=== PATIENT | male | born 1960 | race American Indian/Alaskan Native ===

== ENCOUNTER 2017-02-02 13:11 | Inpatient (IN) | payer BC ==
[2017-02-02 13:17] VITALS: BMI 22.1
[2017-02-02] MEDS ORDERED: Sodium Chloride 0.9% 1,000 ML IV STA (15:02)
[2017-02-02] MEDS ORDERED: Iohexol 240 (50 ml) PO STA (15:02)
[2017-02-02 15:32] LABS: BASO # 0.1 K/uL (0.0-0.2); BASO % 0.5 % (0.0-2.0); EOS % 0.3 % (0.0-4.0); LYMPH # 1.4 K/uL (1.0-4.3); LYMPH % 10.3 % (20.0-40.0); MEAN CELL VOLUME 83.6 fL (80.0-94.0); MEAN CORPUSCULAR HEMOGLOBIN 27.7 pg (27.0-31.0); MEAN CORPUSCULAR HGB CONC 33.2 g/dL (33.0-37.0); MEAN PLATELET VOLUME 7.1 fL (7.2-11.7); MONO % 7.1 % (0.0-10.0); RED CELL DISTRIBUTION WIDTH 13.6 % (11.5-14.5); WHITE BLOOD COUNT 14.1 K/uL (4.8-10.8)
--- NOTE | 2017-02-02 15:43 | RAD ---
HISTORY: abd pain COMPARISON: None available. TECHNIQUE: Chest, one view. FINDINGS: Examination limited by habitus. LUNGS: No focal consolidation. Please note that chest x-ray has limited sensitivity for the detection of pulmonary masses. PLEURA: No significant pleural effusion identified. No definite pneumothorax . CARDIOVASCULAR: The cardiomediastinal silhouette appears within normal limits of size. OSSEOUS STRUCTURES: No acute osseous abnormality identified. VISUALIZED UPPER ABDOMEN: Unremarkable. OTHER FINDINGS: None. IMPRESSION: No focal consolidation, significant pleural effusion, or definite pneumothorax identified.
[2017-02-02] MEDS ORDERED: Iohexol 240 (50 ml) ONE (15:50)
[2017-02-02] MEDS ORDERED: Sodium Chloride 0.9% 1,000 ML ONE (15:50)
[2017-02-02] MEDS ORDERED: Morphine 4 MG/ML VIAL ONE (15:50)
[2017-02-02 16:06] LABS: CHLORIDE 94 mmol/L (98-107); POTASSIUM 4.2 mmol/L (3.6-5.2); SODIUM 136 mmol/L (132-148)
[2017-02-02 16:08] LABS: GFR AFRICAN-AMERICAN > 60
[2017-02-02 16:09] LABS: ALKALINE PHOSPHATASE 112 U/L (38-126); ALT/SGPT 39 U/L (21-72); AST/SGOT 32 U/L (17-59); BLOOD UREA NITROGEN 10 mg/dL (9-20); CALCIUM 9.4 mg/dl (8.6-10.4); CARBON DIOXIDE 25 mmol/L (22-30); GLUCOSE,RANDOM 93 mg/dL (75-110); TOTAL PROTEIN 8.1 g/dL (6.3-8.3)
[2017-02-02 16:11] LABS: INR 1.3
--- NOTE | 2017-02-02 16:59 | C.PDOC ---
History Of Present Illness 56 y/o male presents to the ED with complaints of worsening pain to right groin area x11 days. Pt reports history of similar pain on the opposite side, diagnosed hernia which was repaired. Pain persistant so he went to PMD who referred patient to ED for further evaluation. Pt also reports diarrhea x2 days. Denies fever, chills, vomiting, chest pain, SOB or any other complaints. Time Seen by Provider: 02/02/17 14:14 Chief Complaint (Nursing): Abdominal Pain History Per: Patient History/Exam Limitations: no limitations Onset/Duration Of Symptoms: Days Current Symptoms Are (Timing): Worse Severity: Moderate Radiation Of Pain To:: None Quality Of Discomfort: "Pain" Associated Symptoms: Diarrhea. denies: Fever, Chills, Vomiting, Urinary Symptoms Exacerbating Factors: None Alleviating Factors: None Recent travel outside of the [place]: No Past Medical History Reviewed: Historical Data, Nursing Documentation, Vital Signs Vital Signs: Last Vital Signs Temp 100.2 F H 02/02/17 13:17 Pulse 93 H 02/02/17 15:47 Resp 18 02/02/17 15:47 BP 136/75 02/02/17 15:47 Pulse Ox 99 02/02/17 19:33 - Medical History PMH: Hypercholesterolemia Family History: States: Unknown Family Hx - Social History Hx Alcohol Use: No Hx Substance Use: No - Immunization History Hx Tetanus Toxoid Vaccination: Yes Hx Influenza Vaccination: No Hx Pneumococcal Vaccination: Yes Review Of Systems Except As Marked, All Systems Reviewed And Found Negative. Constitutional: Negative for: Fever, Chills Cardiovascular: Negative for: Chest Pain Respiratory: Negative for: Shortness of Breath Gastrointestinal: Positive for: Diarrhea, Other (right groin pain). Negative for: Vomiting Physical Exam - Physical Exam Appears: Non-toxic, No Acute Distress Skin: Warm, Dry, No Rash Head: Atraumatic, Normacephalic Neck: Normal, Normal ROM, Supple Chest: Symmetrical Cardiovascular: Rhythm Regular, No Murmur Respiratory: Normal Breath Sounds, No Rales, No Rhonchi, No Wheezing Gastrointestinal/Abdominal: Tenderness (right groin with tender swelling area, indurated, warm to palpation, not reducable), Guarding Back: Normal Inspection Male Genital: No Testicular Swelling, Inguinal Tenderness (right), Inguinal Swelling (right), Other (right inguinal area indurated, erythematous and hot to touch) Extremity: No Pedal Edema Extremity: Bilateral: Atraumatic Neurological/Psych: Oriented x3, Normal Speech, Normal Cognition ED Course And Treatment - Laboratory Results Result Diagrams: 02/02/17 15:27 02/02/17 15:50 O2 Sat by Pulse Oximetry: 99 (room air) Pulse Ox Interpretation: Normal - Other Rad CXR X-Ray: Viewed By Me, Read By Radiologist Interpretation: ccession No. : [id number]. Patient Name / ID : JIN FORTE / [id number]. Exam Date : 02/02/2017 15:23:53 ( Approved ). Study Comment : Sex / Age : M / 56Y. Creator : Katerina Allen MD. Dictator : Katerina Allen MD. Equipment Operator [employer] : Healthcare Interpreter : Katerina Allen MD. Approver2 : Report Date : 02/02/2017 15:41:21. My Comment : . HISTORY: abd pain. COMPARISON: None available. TECHNIQUE: Chest, one view. FINDINGS: Examination limited by habitus. LUNGS: No focal consolidation. Please note that chest x-ray has limited sensitivity for the detection of pulmonary masses. PLEURA: No significant pleural effusion identified. No definite pneumothorax . CARDIOVASCULAR: The cardiomediastinal silhouette appears within normal limits of size. OSSEOUS STRUCTURES: No acute osseous abnormality identified. VISUALIZED UPPER ABDOMEN: Unremarkable. OTHER FINDINGS: None. IMPRESSION: No focal consolidation, significant pleural effusion, or definite pneumothorax identified. - CT Scan/US CT abd/pel Other Rad Studies (CT/US): Read By Radiologist, Radiology Report Reviewed CT/US Interpretation: EXAM: CT Abdomen and Pelvis With Intravenous Contrast. CLINICAL HISTORY: 56 years old, male; Pain; Abdominal pain; Flank; Right lower quadrant (rlq); Additional info: Right. inguinal abd pain/erythema/fever. TECHNIQUE: Axial computed tomography images of the abdomen and pelvis with intravenous contrast. This CT. exam was performed using one or more of the following dose reduction techniques: automated. exposure control, adjustment of the mA and/or kV according to patient size, and/or use of iterative. reconstruction technique. Coronal and sagittal reformatted images were created and reviewed. CONTRAST: 100 mL of visipaque 320 administered intravenously. COMPARISON: No relevant prior studies available. FINDINGS: Lower thorax: Borderline cardiomegaly. ABDOMEN: Liver: Unremarkable. No mass. Gallbladder and bile ducts: Unremarkable. No calcified stones. No ductal dilation. Pancreas : Unremarkable. No mass. No ductal dilation. Spleen: Unremarkable. No splenomegaly. Adrenals: Unremarkable. No mass. Kidneys and ureters: Unremarkable. No solid mass. No hydronephrosis. Stomach and bowel: Unremarkable. No obstruction. No mucosal thickening. Appendix: The appendix is distended with fluid and air to 13 mm with a appendicolith near the tip. There is a appendiceal abscess which extends into the inguinal canal,Amyand's appendicitis. PELVIS: Bladder: Distended bladder. Reproductive: There is a moderate to large right hydrocele. Prominent prostate. ABDOMEN and PELVIS: Intraperitoneal space: Unremarkable. No free air. No significant fluid collection. Bones/joints: Spondylosis and facet arthrosis No acute fracture. No dislocation. Soft tissues: Minimal gynecomastia. Vasculature: Atheromatous changes of a normal caliber aorta and branch vessels. No abdominal. aortic aneurysm. Lymph nodes: Regional. IMPRESSION: Amyand's appendicitis. Pattern is still abscess extending into the right inguinal canal measuring on the order of 4.6 cm with adjacent induration of the skin and reactive lymphadenopathy. Right hydrocele. Progress Note: Plan: CT abd, CXR, EKG, UA, IV fluids, morphine, case was d/w PMD who accepted patient to med/surg for admission. - Physician Consult Information Physician Contacted: Nahun Dowd Outcome Of Conversation: admit to PMD, interventional radiology will drain an abscess tomorrow. Disposition - Disposition Disposition: HOSPITALIZED Disposition Time: 20:07 Condition: FAIR - Clinical Impression Clinical Impression: Acute appendicitis with appendiceal abscess, Inguinal hernia, incarcerated - PA / SHEET TAILER / Resident Statement MD/DO has reviewed & agrees with the documentation as recorded. - Scribe Statement The provider has reviewed the documentation as recorded by the Scribe Alberto Kate All medical record entries made by the Marion were at my direction and personally dictated by me. I have reviewed the chart and agree that the record accurately reflects my personal performance of the history, physical exam, medical decision making, and the department course for this patient. I have also personally directed, reviewed, and agree with the discharge instructions and disposition. Decision To Admit - Pt Status Changed To: Hospital Disposition Of: Inpatient - Admit Certification Admit to Inpatient:: After my assessment, the patient will require hospitalization for at least two midnights. This is because of the severity of symptoms shown, intensity of services needed, and/or the medical risk in this patient being treated as an outpatient. - InPatient: Physician Admission Certification:: Will need surgical procedure and IV antibiotics for more than 2 days - . Bed Request Type: Regular Patient Diagnosis: Acute appendicitis with appendiceal abscess, Inguinal hernia, incarcerated
[2017-02-02 17:16] LABS: RBC URINE 4 /hpf (0-3); URINE BACTERIA RARE (<OCC); URINE BILIRUBIN NEGATIVE (NEGATIVE); URINE COLOR Yellow (YELLOW); URINE GLUCOSE (UA) NORMAL (Normal); URINE KETONE TRACE mg/dL (NEGATIVE); URINE LEUKOCYTE ESTERASE NEG Leu/uL (Negative); URINE PROTEIN NEGATIVE (NEGATIVE); URINE UROBILINOGEN NORMAL mg/dL (0.2-1.0); WBC URINE < 1 /hpf (0-5)
[2017-02-02 17:17] LABS: URINE BLOOD 1+ (NEGATIVE)
[2017-02-02] MEDS ORDERED: Piperacillin/Tazobact 3.375 gm 100 ML IV STA (19:36)
[2017-02-02] MEDS ORDERED: Vancomycin 1 GM 1 GM/250 ML BAG IV SCH (19:45)
[2017-02-02] MEDS ORDERED: Piperacillin/Tazobact 3.375 gm 100 ML IVPB ONE (19:45)
[2017-02-02] MEDS ORDERED: Vancomycin 1 GM 1 GM/250 ML BAG IVPB ONE (19:46)
[2017-02-02] MEDS: Dextrose 5%/0.9% NS 1,000 ML IV SCH (22:34)
--- NOTE | 2017-02-02 22:43 | CP.PCM.CON ---
<Nathen Haines - Last Filed: 02/03/17 00:03> History of Present Illness - History of Present Illness History of Present Illness: Surgery Consult Note. Dr. Dowd CC: R Groin Pain 56yo M with PMHx of HLD here for evaluation of Right groin pain. Patient states that he felt a sharp pain in his right groin 11 days ago and also felt a small bulge in his right groin at that time. The pain subsided with some rest and then returned the following day and he noticed the bulge grew in size. Since then, he has noticed the bulge grow in size and the pain has also worsening, yesterday was the worst of his pain. He states that he did not take anything for the pain, pushing on the bulge makes the pain worse. He also states that he started running subjective fevers and chills for the past day. He also had one episode of diarrhea, no blood, no melena yesterday. He then went to his PMD earlier this afternoon who sent the patient to [facility] ED for further evaluation. Temp was 100.7F at PMD clinic. Patient does state that he has decreased appetite since yesterday. Also c/o mild headaches. Denies any N/V. No urinary changes. No CP/SOB. PMD: Dr. Romo PMHx: HLD - controlled with diet for past 3 months PSHx: Open left inguinal hernia repair about 10 years ago. 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 Former smoker quit 8 years ago. Denies ETOH. Denies illicit drugs Family Hx: Denies NKDA Review of Systems - Review of Systems All systems: reviewed and no additional remarkable complaints except - Constitutional Constitutional: Anorexia, Chills, Fever, Headache - EENT Eyes: absent: Change in Vision Ears: absent: Dizziness - Cardiovascular Cardiovascular: absent: Chest Pain - Gastrointestinal Gastrointestinal: Abdominal Pain, Diarrhea. absent: Melena, Nausea, Vomiting - Genitourinary Genitourinary: absent: Dysuria Past Patient History - Past Medical History & Family History Past Medical History?: Yes Past Family History: Reviewed and not pertinent - Past Social History Smoking Status: Never Smoked - CARDIAC Hx Hypercholesterolemia: Yes - MUSCULOSKELETAL/RHEUMATOLOGICAL Hx Falls: No - PSYCHIATRIC Hx Substance Use: No - SURGICAL HISTORY Hx Surgeries: Yes Hx Herniorrhaphy: Yes (left inguinal hernia) Other/Comment: right scrotal surgery /hydrocoele - ANESTHESIA Hx Anesthesia: Yes Hx Anesthesia Reactions: No Meds Allergies/Adverse Reactions: Allergies Allergy/AdvReac Type Severity Reaction Status Date / Time No Known Allergies Allergy Verified 02/02/17 13:17 - Medications Medications: Current Medications Vancomycin HCl (Vancomycin 1gm In Normal Saline Addvantage) 1 gm in 250 mls @ 166.667 mls/hr IV STAT [facility] Last Admin: 02/02/17 20:40 Dose: 166.667 mls/hr Dextrose/Sodium Chloride (Dextrose 5%/0.9% Ns 1000 Ml) 1,000 mls @ 100 mls/hr IV .Q10H [facility] Last Admin: 02/02/17 22:34 Dose: 100 mls/hr Metronidazole (Flagyl) 500 mg in 100 mls @ 100 mls/hr IVPB Q6 [facility] Piperacillin Sod/Tazobactam Sod (Zosyn 3.375 In Ns 100ml) 100 mls @ 200 mls/hr IVPB Q6 [facility] Oxycodone/Acetaminophen (Percocet 5/325 Mg Tab) 1 tab PO Q4H PRN PRN Reason: Pain, moderate (4-7) Stop: 02/05/17 20:32 Pneumococcal Polyvalent Vaccine (Pneumovax 23 Vaccine) 0.5 ml IM .ONCE ONE Stop: 02/04/17 10:01 Tamsulosin HCl (Flomax) 0.4 mg PO DAILY [facility] Physical Exam - Constitutional Appears: Well, No Acute Distress - Head Exam Head Exam: ATRAUMATIC, NORMAL INSPECTION, NORMOCEPHALIC - Eye Exam Eye Exam: EOMI, Normal appearance - ENT Exam ENT Exam: Mucous Membranes Moist - Respiratory Exam Respiratory Exam: NORMAL BREATHING PATTERN - GI/Abdominal Exam GI & Abdominal Exam: Soft. absent: Distended, Guarding, Rebound, Rigid, Tenderness Additional comments: Right groin hernia noted, non-reducible. Hard, with skin erythema noted. No pulse within hernia sac. Tender to palpation. No McBurney's - Extremities Exam Extremities exam: Positive for: normal inspection. Negative for: calf tenderness - Neurological Exam Neurological exam: Alert, Oriented x3 - Psychiatric Exam Psychiatric exam: Normal Affect, Normal Mood Results - Vital Signs Recent Vital Signs: Last Vital Signs Temp 100.2 F H 02/02/17 13:17 Pulse 93 H 02/02/17 15:47 Resp 18 02/02/17 15:47 BP 136/75 02/02/17 15:47 Pulse Ox 99 02/02/17 20:09 - Labs Result Diagrams: 02/02/17 15:27 02/02/17 15:50 Assessment & Plan - Assessment and Plan (Free Text) Assessment: 56yo M w/ Poss. perforated Appy within incarcerated Amyand hernia - CT: ~4cm fluid collection within right incarcerated inguinal hernia with poss perf appendicitis - no signs of bowel obstruction - Low-grade fever - Leukocytosis - Recommend IR consult for possible drainage of collection - NPO - IVF - IV Abx - Pain management - f/u AM labs - will follow Further recs as per Dr. Noemí Haines PGY1 surgery pager: [phone] <Nahun Dowd - Last Filed: 02/03/17 20:06> Meds - Medications Medications: Current Medications Dextrose/Sodium Chloride (Dextrose 5%/0.9% Ns 1000 Ml) 1,000 mls @ 100 mls/hr IV .Q10H [facility] Last Admin: 02/03/17 16:30 Dose: Not Given Metronidazole (Flagyl) 500 mg in 100 mls @ 100 mls/hr IVPB Q6 [facility] Last Admin: 02/03/17 18:00 Dose: 100 mls/hr Piperacillin Sod/Tazobactam (Sod 3.375 gm/ Sodium Chloride) 100 mls @ 200 mls/ hr IVPB Q6 [facility] Last Admin: 02/03/17 18:01 Dose: 200 mls/hr Potassium Chloride/Sodium Chloride (Potassium Chl 20 Meq In Ns) 1,000 mls @ 100 mls/hr IV .Q10H [facility] Last Admin: 02/03/17 14:23 Dose: 100 mls/hr Morphine Sulfate (Morphine) 4 mg IVP Q4 PRN PRN Reason: Pain, moderate (4-7) Oxycodone/Acetaminophen (Percocet 5/325 Mg Tab) 1 tab PO Q4H PRN PRN Reason: Pain, moderate (4-7) Stop: 02/05/17 20:32 Last Admin: 07/25/17 10:01 Dose: 1 tab Pneumococcal Polyvalent Vaccine (Pneumovax 23 Vaccine) 0.5 ml IM .ONCE ONE Stop: 02/04/17 10:01 Tamsulosin HCl (Flomax) 0.4 mg PO DAILY [facility] Last Admin: 02/03/17 10:05 Dose: 0.4 mg Results - Vital Signs Recent Vital Signs: Last Vital Signs Temp 100.4 F H 02/03/17 15:00 Pulse 93 H 02/03/17 15:00 Resp 20 02/03/17 15:00 BP 109/61 02/03/17 15:00 Pulse Ox 100 02/03/17 15:00 - Labs Result Diagrams: 02/03/17 11:28 02/03/17 11:28 Labs: Laboratory Results - last 24 hr 02/03/17 02/03/17 02/03/17 11:28 11:28 11:31 WBC 12.3 H RBC 4.01 L Hgb 11.1 L D Hct 33.2 L MCV 83.0 MCH 27.6 MCHC 33.3 RDW 13.4 Plt Count 390 MPV 7.2 Neut % (Auto) 79.2 H Lymph % (Auto) 11.0 L Russell % (Auto) 8.5 Eos % (Auto) 0.9 Baso % (Auto) 0.4 Neut # 9.8 H Lymph # 1.3 Russell # 1.0 H Eos # 0.1 Baso # 0.0 Sodium 135 Potassium 3.4 L Chloride 97 L Carbon Dioxide 24 Anion Gap 17 BUN 8 L Creatinine 0.9 Est GFR ( Amer) > 60 Est GFR (Non-Af Amer) > 60 Random Glucose 109 Lactic Acid 0.9 Calcium 7.9 L Total Bilirubin 0.8 AST 24 ALT 39 Alkaline Phosphatase 84 Total Protein 6.4 Albumin 3.0 L D Globulin 3.4 Albumin/Globulin Ratio 0.9 L Attending/Attestation - Attestation I have personally seen and examined this patient.: Yes I have fully participated in the care of the patient.: Yes I have reviewed all pertinent clinical information: Yes Notes (Text): 02/03/17 20:05 Pt was seen and examined at bedside on 02/03/17 Agree with above note and assessment. Pt with Perf Appendicitis with abscess in right inguinal canal IR drainage of abscess C.w current mx NPO after midnight Plan d.w pt in detail Risk and benefit explained in detail.
[2017-02-03] MEDS: metroNIDAZOLE IV 500 mg/100 ml 500 MG/100 ML BAG IVPB SCH ×4 (00:15→18:00)
[2017-02-03] MEDS: Oxycodone/Acetaminophen 5/325 mg Tab PO PRN ×2 (00:52→10:01)
[2017-02-03] MEDS: Piperacillin/Tazobact 3.375 gm 100 ML IVPB SCH ×2 (01:34→05:35)
[2017-02-03] MEDS: Dextrose 5%/0.9% NS 1,000 ML IV SCH ×2 (06:30→16:30)
--- NOTE | 2017-02-03 07:43 | CP.PCM.PN ---
<Natty Zimmerman - Last Filed: 02/03/17 08:35> Subjective - Date & Time of Evaluation Date of Evaluation: 02/03/17 Time of Evaluation: 07:00 - Subjective Subjective: General sx progress note for Dr. Dowd-Natty Zimmerman, PGY-1 Pt S & E at bedside. Pt reports continued pain in R groin area, chills, bloated sensation. Denies N/ V/F, BM since yesterday, CP, ab pain. Objective - Vital Signs/Intake and Output Vital Signs (last 24 hours): Temp Pulse Resp BP Pulse Ox 101.5 F H 98 H 20 114/56 L 97 02/03/17 00:14 02/03/17 00:14 02/03/17 00:14 02/03/17 00:14 02/03/17 00:14 Intake and Output: 02/03/17 02/03/17 06:59 18:59 Intake Total 300 Balance 300 - Medications Medications: Current Medications Vancomycin HCl (Vancomycin 1gm In Normal Saline Addvantage) 1 gm in 250 mls @ 166.667 mls/hr IV STAT [facility] Last Admin: 02/02/17 20:40 Dose: 166.667 mls/hr Dextrose/Sodium Chloride (Dextrose 5%/0.9% Ns 1000 Ml) 1,000 mls @ 100 mls/hr IV .Q10H [facility] Last Admin: 02/02/17 22:34 Dose: 100 mls/hr Metronidazole (Flagyl) 500 mg in 100 mls @ 100 mls/hr IVPB Q6 [facility] Last Admin: 02/03/17 05:00 Dose: 100 mls/hr Piperacillin Sod/Tazobactam Sod (Zosyn 3.375 In Ns 100ml) 100 mls @ 200 mls/hr IVPB Q6 [facility] Last Admin: 02/03/17 05:35 Dose: 200 mls/hr Morphine Sulfate (Morphine) 4 mg IVP Q4 PRN PRN Reason: Pain, moderate (4-7) Oxycodone/Acetaminophen (Percocet 5/325 Mg Tab) 1 tab PO Q4H PRN PRN Reason: Pain, moderate (4-7) Stop: 02/05/17 20:32 Last Admin: 02/03/17 00:52 Dose: 1 tab Pneumococcal Polyvalent Vaccine (Pneumovax 23 Vaccine) 0.5 ml IM .ONCE ONE Stop: 02/04/17 10:01 Tamsulosin HCl (Flomax) 0.4 mg PO DAILY [facility] - Labs Labs: PT 14.5 SECONDS (9.7-12.2) H 02/02/17 15:50 INR 1.3 02/02/17 15:50 APTT 31 SECONDS (21-34) 02/02/17 15:50 - Constitutional Appears: Non-toxic, No Acute Distress - Head Exam Head Exam: ATRAUMATIC, NORMAL INSPECTION, NORMOCEPHALIC - Eye Exam Eye Exam: EOMI, Normal appearance - ENT Exam ENT Exam: Mucous Membranes Moist, Normal Exam - Neck Exam Neck Exam: Full ROM - Respiratory Exam Respiratory Exam: Clear to Ausculation Bilateral, NORMAL BREATHING PATTERN. absent: Rales, Rhonchi, Wheezes, Respiratory Distress - Cardiovascular Exam Cardiovascular Exam: REGULAR RHYTHM, +S1, +S2 - GI/Abdominal Exam GI & Abdominal Exam: Soft, Hypoactive Bowel Sounds. absent: Distended, Firm, Guarding, Rigid, Tenderness - Extremities Exam Extremities Exam: Tenderness (Right groin). absent: Normal Inspection Additional comments: Right groin area with firm mass, tender to palpation, with increased warmth - Neurological Exam Neurological Exam: Alert, Awake, Oriented x3 - Psychiatric Exam Psychiatric exam: Normal Affect, Normal Mood - Skin Skin Exam: Dry, Intact, Normal Color, Warm Assessment and Plan - Assessment and Plan (Free Text) Assessment: 56M w/possible perforated appendix within incarcerated Amyand right inguinal hernia Plan: Awaiting IR recs NPO Cont IV Abx Cont IVF Cont pain mgmt Further recs as per attending Will DW attending Elsie, PGY-1 <Nahun Dowd B - Last Filed: 02/03/17 20:07> Objective - Vital Signs/Intake and Output Vital Signs (last 24 hours): Temp Pulse Resp BP Pulse Ox 100.4 F H 93 H 20 109/61 100 02/03/17 15:00 02/03/17 15:00 02/03/17 15:00 02/03/17 15:00 02/03/17 15:00 - Medications Medications: Current Medications Dextrose/Sodium Chloride (Dextrose 5%/0.9% Ns 1000 Ml) 1,000 mls @ 100 mls/hr IV .Q10H [facility] Last Admin: 02/03/17 16:30 Dose: Not Given Metronidazole (Flagyl) 500 mg in 100 mls @ 100 mls/hr IVPB Q6 [facility] Last Admin: 02/03/17 18:00 Dose: 100 mls/hr Piperacillin Sod/Tazobactam (Sod 3.375 gm/ Sodium Chloride) 100 mls @ 200 mls/ hr IVPB Q6 [facility] Last Admin: 02/03/17 18:01 Dose: 200 mls/hr Potassium Chloride/Sodium Chloride (Potassium Chl 20 Meq In Ns) 1,000 mls @ 100 mls/hr IV .Q10H [facility] Last Admin: 02/03/17 14:23 Dose: 100 mls/hr Morphine Sulfate (Morphine) 4 mg IVP Q4 PRN PRN Reason: Pain, moderate (4-7) Oxycodone/Acetaminophen (Percocet 5/325 Mg Tab) 1 tab PO Q4H PRN PRN Reason: Pain, moderate (4-7) Stop: 02/05/17 20:32 Last Admin: 02/03/17 10:01 Dose: 1 tab Pneumococcal Polyvalent Vaccine (Pneumovax 23 Vaccine) 0.5 ml IM .ONCE ONE Stop: 02/04/17 10:01 Tamsulosin HCl (Flomax) 0.4 mg PO DAILY [facility] Last Admin: 02/03/17 10:05 Dose: 0.4 mg - Labs Labs: 02/03/17 11:28 02/03/17 11:28 PT 14.5 SECONDS (9.7-12.2) H 02/02/17 15:50 INR 1.3 02/02/17 15:50 APTT 31 SECONDS (21-34) 02/02/17 15:50 Attending/Attestation - Attestation I have personally seen and examined this patient.: Yes I have fully participated in the care of the patient.: Yes I have reviewed all pertinent clinical information, including history, physical exam and plan: Yes Notes (Text): 02/03/17 20:07 Pt was seen and examined at bedside on 02/03/17 Agree with above note and assessment. Pt with Perf Appendicitis with abscess in right inguinal canal IR drainage of abscess C.w current mx NPO after midnight Plan d.w pt in detail Risk and benefit explained in detail.
[2017-02-03 11:43] LABS: EOS # 0.1 K/uL (0.0-0.7); MONO % 8.5 % (0.0-10.0)
[2017-02-03 11:47] LABS: BASO % 0.4 % (0.0-2.0); EOS % 0.9 % (0.0-4.0); HEMATOCRIT 33.2 % (35.0-51.0); LYMPH # 1.3 K/uL (1.0-4.3); MEAN CORPUSCULAR HEMOGLOBIN 27.6 pg (27.0-31.0); MEAN CORPUSCULAR HGB CONC 33.3 g/dL (33.0-37.0); MEAN PLATELET VOLUME 7.2 fL (7.2-11.7); RED CELL DISTRIBUTION WIDTH 13.4 % (11.5-14.5); WHITE BLOOD COUNT 12.3 K/uL (4.8-10.8)
[2017-02-03 12:03] LABS: CHLORIDE 97 mmol/L (98-107); SODIUM 135 mmol/L (132-148)
[2017-02-03 12:04] LABS: POTASSIUM 3.4 mmol/L (3.6-5.2)
[2017-02-03 12:05] LABS: GFR AFRICAN-AMERICAN > 60
[2017-02-03 12:06] LABS: ALB/GLOB RATIO 0.9 (1.0-2.1); ALKALINE PHOSPHATASE 84 U/L (38-126); ALT/SGPT 39 U/L (21-72); AST/SGOT 24 U/L (17-59); BILIRUBIN,TOTAL 0.8 mg/dL (0.2-1.3); BLOOD UREA NITROGEN 8 mg/dL (9-20); CARBON DIOXIDE 24 mmol/L (22-30); GLUCOSE,RANDOM 109 mg/dL (75-110); TOTAL PROTEIN 6.4 g/dL (6.3-8.3)
[2017-02-03 12:07] LABS: CALCIUM 7.9 mg/dl (8.6-10.4)
--- NOTE | 2017-02-03 13:07 | CT ---
PROCEDURE: CT Abdomen and Pelvis with oral and IV contrast. HISTORY: right inguinal abd pain/erythema/fever COMPARISON: None available TECHNIQUE: Contiguous axial images of the abdomen and pelvis. Oral and IV contrast was administered. Coronal and Sagittal reformats generated and reviewed. Contrast dose: 100 cc Visipaque 320 Radiation dose: Total exam DLP = 215.23 mGy-cm. This CT exam was performed using one or more of the following dose reduction techniques: Automated exposure control, adjustment of the mA and/or kV according to patient size, and/or use of iterative reconstruction technique. FINDINGS: LOWER THORAX: No visible consolidation, pleural effusion, or pneumothorax. LIVER: Unremarkable. GALLBLADDER AND BILE DUCTS: Unremarkable. PANCREAS: Unremarkable. SPLEEN: Unremarkable. ADRENALS: Unremarkable. KIDNEYS AND URETERS: The kidneys enhance symmetrically. No hydronephrosis or obstructing renal calculus. BLADDER: Distended urinary bladder. REPRODUCTIVE: The prostate gland appears enlarged measuring approximately 4.5 x 5.3 cm. Right-sided hydrocele. APPENDIX: The appendix appears distended with fluid and air measuring approximately 1.1 cm in diameter. Suspected appendicolith near the appendiceal tip. Periappendiceal abscess which appears to extend into the inguinal canal measuring approximately 4.9 cm with adjacent induration and reactive adenopathy. BOWEL: The stomach is nondistended. The bowel loops appear within normal limits of caliber without evidence of intestinal obstruction. PERITONEUM: No significant free fluid. No definite free air. LYMPH NODES: Periappendiceal nodes, may be reactive. VASCULATURE: Atherosclerotic calcifications. No aortic aneurysm. BONES: No acute osseous abnormality is detected. OTHER FINDINGS: Partial imaged bilateral gynecomastia. IMPRESSION: Distended appendix with fluid and air measuring up to approximately 1.1 cm in diameter. Evidence of appendicolith near the appendiceal tip. Periappendiceal abscess which appears to extend into the inguinal canal measuring approximately 4.9 cm with adjacent induration and reactive adenopathy. Large prostate gland. Recommend correlation with PSA. Moderate to large right-sided hydrocele. Additional findings as above. Preliminary impression was provided by virtual radiologic.
[2017-02-03] MEDS: Potassium Chl 20 mEq in NS 1,000 ML IV SCH (14:23)
--- NOTE | 2017-02-03 15:48 | CP.PCM.CON ---
History of Present Illness - History of Present Illness History of Present Illness: 56year old Syrian male admitted with 12 days of of abdominal pain and with right inguinal hernia which has been getting bigger and bigger and also has fever of and on and he went yesterday to see his doctor Patient is also having pain in right lower abdomen. Fevers present,no sob,no chest pain,no nausea no vomiting no urinary symptoms.Is losing his appetite. Review of Systems - Constitutional Constitutional: Fever. absent: As Per HPI, Anorexia, Chills, Daytime Sleepiness , Excessive Sweating, Fatigue, Frequent Falls, Headache, Increased Appetite, Lethargy, Malaise, Night Sweats, Snoring, Sleep Apnea, Weight Gain, Weight Loss , Weakness, Other - EENT Eyes: absent: As Per HPI, Blind Spots, Blurred Vision, Change in Vision, Decreased Night Vision, Diplopia, Discharge, Dry Eye, Exophthalmos, Floaters, Irritation, Itchy Eyes, Loss of Peripheral Vision, Pain, Photophobia, Requires Corrective Lenses, Sees Flashes, Spots in Vision, Tunnel Vision, Other Visual Disturbances, Loss of Vision, Other Ears: absent: As Per HPI, Decreased Hearing, Ear Discharge, Ear Pain, Tinnitus, Abnormal Hearing, Disequilibrium, Dizziness, Other Nose/Mouth/Throat: absent: As Per HPI, Epistaxis, Nasal Congestion, Nasal Discharge, Nasal Obstruction, Nasal Trauma, Nose Pain, Post Nasal Drip, Sinus Pain, Sinus Pressure, Bleeding Gums, Change in Voice, Dental Pain, Dry Mouth, Dysphagia, Halitosis, Hoarsness, Lip Swelling, Mouth Lesions, Mouth Pain, Odynophagia, Sore Throat, Throat Swelling, Tongue Swelling, Facial Pain, Neck Pain, Neck Mass, Other - Cardiovascular Cardiovascular: absent: As Per HPI, Acrocyanosis, Chest Pain, Chest Pain at Rest , Chest Pain with Activity, Claudication, Diaphoresis, Dyspnea, Dyspnea on Exertion, Edema, Irregular Heart Rhythm, Pain Radiating to Arm/Neck/Jaw, Leg Edema, Leg Ulcers, Lightheadedness, Orthopnea, Palpitations, Paroxysmal Nocturnal Dyspnea, Pedal Edema, Radiating Pain, Rapid Heart Rate, Slow Heart Rate, Syncope, Other - Respiratory Respiratory: absent: As Per HPI, Cough, Dyspnea, Hemoptysis, Dyspnea on Exertion , Wheezing, Snoring, Stridor, Pain on Inspiration, Chest Congestion, Excessive Mucous Production, Change in Mucous Color, Pain with Coughing, Other - Gastrointestinal Gastrointestinal: Abdominal Pain. absent: As Per HPI, Belching, Bloating, Change in Bowel Habits, Change in Stool Character, Coffee Ground Emesis, Constipation, Cramping, Diarrhea, Dyspepsia, Dysphagia, Early Satiety, Excessive Flatus, Fecal Incontinence, Heartburn, Hematemesis, Hematochezia, Loose Stools, Melena, Nausea, Odynophagia, Temesmus, Vomiting, Other - Genitourinary Genitourinary: absent: As Per HPI, Change in Urinary Stream, Difficulty Urinating, Dysuria, Flank Pain, Hematuria, Pyuria, Nocturia, Urinary Incontinence, Urinary Frequency, Urinary Hesitance, Urinary Urgency, Voiding Freq/Small Amts, Freq UTI, Hx Renal/Bladder Calculi, Hx /Renal Surgery, Bladder Distension, Other - Reproductive: Male Additional comments: right inguinal pain - Musculoskeletal Musculoskeletal: absent: As Per HPI, Abnormal Gait, Arthralgias, Atrophy, Back Pain, Deformity, Joint Swelling, Limited Range of Motion, Loss of Height, Muscle Cramps, Muscle Weakness, Myalgias, Neck Pain, Numbness, Radiating Pain into Limb, Stiffness, Tingling, Other - Integumentary Integumentary: absent: As Per HPI, Acne, Alopecia, Bleeding Lesions, Change in Hair, Change in Nails, Change in Pigmentation, Changing Lesions, Dry Skin, Erythema, Furuncle, Hirsutism, Lesions, New Lesions, Non-Healing Lesions, Photosensitivity, Pruritus, Rash, Skin Pain, Skin Ulcer, Sores, Striae, Swelling , Unusual Bruising, Wounds, Jaundice, Other - Neurological Neurological: absent: As Per HPI, Abnormal Gait, Abnormal Hearing, Abnormal Movements, Abnormal Speech, Behavioral Changes, Burning Sensations, Confusion, Convulsions, Disequilibrium, Dizziness, Numbness, Focal Weakness, Frequent Falls , Headaches, Lack of Coordination, Loss of Vision, Memory Loss, Paresthesias, Radicular Pain, Restless Legs, Sensory Deficit, Syncope, Tingling, Tremor, Vertigo, Weakness, Other Visual Disturbances, Other - Psychiatric Psychiatric: absent: As Per HPI, Abnormal Sleep Pattern, Anhedonia, Anxiety, Auditory Hallucinations, Behavioral Changes, Change in Appetite, Change in Libido, Confusion, Depression, Difficulty Concentrating, Hallucinations, Homicidal Ideation, Hopelessness, Irritability, Memory Loss, Mood Swings, Panic Attacks, Paranoia, Suicidal Ideation, Visual Hallucinations, Tactile Hallucinations, Other - Endocrine Endocrine: absent: As Per HPI, Change in Body Appearance, Change in Libido, Cold Intolorance, Deepening of Voice, Excessive Sweating, Fatigue, Flushing, Heat Intolorance, Increase in Ring/Shoe/Hat Size, Palpitations, Polydipsia, Polyphagia, Polyuria, Other - Hematologic/Lymphatic Hematologic: absent: As Per HPI, Easy Bleeding, Easy Bruising, Lymphadenopathy, Other Past Patient History - Past Medical History & Family History Past Medical History?: Yes Past Family History: Reviewed and not pertinent - Past Social History Smoking Status: Never Smoked - CARDIAC Hx Hypercholesterolemia: Yes - MUSCULOSKELETAL/RHEUMATOLOGICAL Hx Falls: No - PSYCHIATRIC Hx Substance Use: No - SURGICAL HISTORY Hx Surgeries: Yes Hx Herniorrhaphy: Yes (left inguinal hernia) Other/Comment: right scrotal surgery /hydrocoele - ANESTHESIA Hx Anesthesia: Yes Hx Anesthesia Reactions: No Meds Allergies/Adverse Reactions: Allergies Allergy/AdvReac Type Severity Reaction Status Date / Time No Known Allergies Allergy Verified 02/02/17 13:17 - Medications Medications: Current Medications Dextrose/Sodium Chloride (Dextrose 5%/0.9% Ns 1000 Ml) 1,000 mls @ 100 mls/hr IV .Q10H [facility] Last Admin: 02/03/17 06:30 Dose: Not Given Metronidazole (Flagyl) 500 mg in 100 mls @ 100 mls/hr IVPB Q6 [facility] Last Admin: 02/03/17 11:16 Dose: 100 mls/hr Piperacillin Sod/Tazobactam (Sod 3.375 gm/ Sodium Chloride) 100 mls @ 200 mls/ hr IVPB Q6 [facility] Potassium Chloride/Sodium Chloride (Potassium Chl 20 Meq In Ns) 1,000 mls @ 100 mls/hr IV .Q10H [facility] Last Admin: 02/03/17 14:23 Dose: 100 mls/hr Morphine Sulfate (Morphine) 4 mg IVP Q4 PRN PRN Reason: Pain, moderate (4-7) Oxycodone/Acetaminophen (Percocet 5/325 Mg Tab) 1 tab PO Q4H PRN PRN Reason: Pain, moderate (4-7) Stop: 02/05/17 20:32 Last Admin: 02/03/17 10:01 Dose: 1 tab Pneumococcal Polyvalent Vaccine (Pneumovax 23 Vaccine) 0.5 ml IM .ONCE ONE Stop: 02/04/17 10:01 Tamsulosin HCl (Flomax) 0.4 mg PO DAILY [facility] Last Admin: 02/03/17 10:05 Dose: 0.4 mg Physical Exam - Constitutional Appears: No Acute Distress - Head Exam Head Exam: ATRAUMATIC, NORMOCEPHALIC - Eye Exam Eye Exam: Normal appearance. absent: Conjunctival injection, EOMI, Nystagmus, Periorbital swelling, Periorbital tenderness, PERRL, Scleral icterus Pupil Exam: NORMAL ACCOMODATION. absent: Fixed, Irregular, Miosis, Mydriatic, PERRL, Unequal - ENT Exam ENT Exam: Normal Exam. absent: Mucous Membranes Dry, Mucous Membranes Moist, Normal External Ear Exam, Normal Oropharynx, TM's Normal Bilaterally - Neck Exam Neck exam: Positive for: Normal Inspection. Negative for: Full Rom, Lymphadenopathy, Meningismus, Tenderness, Thyromegaly - Respiratory Exam Respiratory Exam: Clear to Auscultation Bilateral, NORMAL BREATHING PATTERN. absent: Accessory Muscle Use, Chest Wall Tenderness, Decreased Breath Sounds, Prolonged Expiratory Phase, Rales, Rhonchi, Wheezes, Respiratory Distress, Stridor - Cardiovascular Exam Cardiovascular Exam: REGULAR RHYTHM, RRR. absent: Bradycardia, Tachycardia, Clicks, Diastolic murmur, Gallop, Irregular Rhythm, JVD, Rubs, +S1, +S2, +S4, Systolic Murmur - GI/Abdominal Exam GI & Abdominal Exam: Normal Bowel Sounds, Soft. absent: Bruit, Diminished Bowel Sounds, Distended, Firm, Guarding, Hernia, Hyperactive Bowel Sounds, Hypoactive Bowel Sounds, Mass, Organomegaly, Pulsatile Mass, Rebound, Rigid, Tenderness Additional comments: right lower abdomen tenderness present with strangulated hernia - Skin Skin Exam: Intact Results - Vital Signs Recent Vital Signs: Last Vital Signs Temp 100 F H 02/03/17 08:33 Pulse 90 02/03/17 08:33 Resp 20 02/03/17 08:33 BP 112/63 02/03/17 08:33 Pulse Ox 100 02/03/17 08:33 - Labs Result Diagrams: 02/03/17 11:28 02/03/17 11:28 Labs: Laboratory Results - last 24 hr 02/03/17 02/03/17 02/03/17 11:28 11:28 11:31 WBC 12.3 H RBC 4.01 L Hgb 11.1 L D Hct 33.2 L MCV 83.0 MCH 27.6 MCHC 33.3 RDW 13.4 Plt Count 390 MPV 7.2 Neut % (Auto) 79.2 H Lymph % (Auto) 11.0 L [place] % (Auto) 8.5 Eos % (Auto) 0.9 Baso % (Auto) 0.4 Neut # 9.8 H Lymph # 1.3 [place] # 1.0 H Eos # 0.1 Baso # 0.0 Sodium 135 Potassium 3.4 L Chloride 97 L Carbon Dioxide 24 Anion Gap 17 BUN 8 L Creatinine 0.9 Est GFR ( Amer) > 60 Est GFR (Non-Af Amer) > 60 Random Glucose 109 Lactic Acid 0.9 Calcium 7.9 L Total Bilirubin 0.8 AST 24 ALT 39 Alkaline Phosphatase 84 Total Protein 6.4 Albumin 3.0 L D Globulin 3.4 Albumin/Globulin Ratio 0.9 L - Imaging and Cardiology Chest x-ray Status: Report reviewed by me Assessment & Plan (1) Acute appendicitis with appendiceal abscess Status: Acute (2) Inguinal hernia, incarcerated Status: Acute - Assessment and Plan (Free Text) Assessment: patient has appendiceal ruptured with absces and extention to right Inguinal hernia
[2017-02-03] MEDS: Piperacillin/Tazobact 3.375 GM in Sodium Chloride 0.9% 100 ML IVPB SCH (18:01)
[2017-02-03] MEDS: Morphine 4 MG/ML VIAL IVP PRN (21:50)
[2017-02-04] MEDS: metroNIDAZOLE IV 500 mg/100 ml 500 MG/100 ML BAG IVPB SCH ×4 (00:01→17:52)
[2017-02-04] MEDS: Piperacillin/Tazobact 3.375 GM in Sodium Chloride 0.9% 100 ML IVPB SCH ×4 (00:02→17:52)
[2017-02-04] MEDS: Dextrose 5%/0.9% NS 1,000 ML IV SCH ×2 (07:09→21:43)
[2017-02-04] MEDS: Potassium Chl 20 mEq in NS 1,000 ML IV SCH ×2 (07:10→19:50)
[2017-02-04 07:42] LABS: BASO % 0.3 % (0.0-2.0); EOS # 0.1 K/uL (0.0-0.7); HEMATOCRIT 34.9 % (35.0-51.0); LYMPH # 1.4 K/uL (1.0-4.3); LYMPH % 9.4 % (20.0-40.0); MEAN CELL VOLUME 83.6 fL (80.0-94.0); MEAN CORPUSCULAR HGB CONC 33.5 g/dL (33.0-37.0); MEAN PLATELET VOLUME 7.3 fL (7.2-11.7); MONO # 1.1 K/uL (0.0-0.8); MONO % 7.9 % (0.0-10.0); NRBC % 0.1 % (0.0-2.0); PLATELET COUNT 406 K/uL (130-400); RED CELL DISTRIBUTION WIDTH 13.4 % (11.5-14.5); WHITE BLOOD COUNT 14.5 K/uL (4.8-10.8)
[2017-02-04 07:49] LABS: CHLORIDE 98 mmol/L (98-107); POTASSIUM 3.7 mmol/L (3.6-5.2); SODIUM 137 mmol/L (132-148)
[2017-02-04 07:52] LABS: BLOOD UREA NITROGEN 11 mg/dL (9-20); CARBON DIOXIDE 22 mmol/L (22-30); GFR AFRICAN-AMERICAN > 60
[2017-02-04 07:53] LABS: CALCIUM 8.5 mg/dl (8.6-10.4); GLUCOSE,RANDOM 71 mg/dL (75-110)
--- NOTE | 2017-02-04 08:39 | HP ---
HISTORY OF PRESENT ILLNESS: This is a 56-year-old male with history of hypertension and history of hydrocele and the patient also has history of a hernia repair. The patient did come to my office yesterday and complaining of some kind of swelling to the right groin. The patient stated this started about two weeks ago and progressively the swelling started increasing and become tender, so the patient came to my office and was evaluated. The patient was asked to go to the emergency room immediately for admission. ALLERGIES: THE PATIENT HAS NO KNOWN ALLERGIES. PAST MEDICAL HISTORY: As I mentioned hypertension and also history of hernia repair. SOCIAL HISTORY: The patient is and has children. No smoking or alcohol abuse. FAMILY HISTORY: No inherited disease. REVIEW OF SYSTEMS: RESPIRATORY: The patient denies any shortness of breath. CARDIOVASCULAR: No chest pain. GASTROINTESTINAL: The patient has been having some pain to do light work and also could be anorexia. GENITOURINARY: Denies dysuria. NEUROLOGIC: The patient feels weak. PHYSICAL EXAMINATION: GENERAL: The patient is alert, awake, and oriented x3. VITAL SIGNS: The patient has lost weight about 10 pounds for the past two weeks. The patient has blood pressure of 114/56, pulse rate 98, respirations 20, temperature 101.5. In my office, the patient's temperature was 100.8. NECK: Supple. No JVD. LUNGS: Clear. CARDIOPULMONARY: Heart is regular rate and rhythm, but yesterday had some tachycardia at times. ABDOMEN: Soft, but there is a mass in the right groin, indurated mass, is tender, warm, and not reducible. EXTREMITIES: There is no edema. LABORATORY DATA: The patient's blood test shows WBC of 14.1, hemoglobin 13.3, hematocrit 40, and platelet 422. Coagulation shows the PT is 14.5, INR is 1.3 and PTT 31. Chemistry; sodium 136, potassium 4.2, chloride is 94, bicarb 26, BUN 10, creatinine 0.9 and calcium is 9.4. AST 32, ALT 39, alkaline phosphatase is 112, albumin 4, bilirubin 4.1, lipase 154. Also, the patient had a CT of the abdomen and pelvis done in the emergency room that has shown distended appendix with fluid and air, measuring approximately 1.1 cm in diameter, evidence of appendicitis near the appendiceal and periappendiceal abscess, which appear to extend into the inguinal canal measuring approximately 4.9 cm with adjacent induration and reactive adenopathy and hydrocele is also seen in an enlarged prostate. ASSESSMENT AND PLAN: The patient is admitted with diagnosis of appendicitis and incarcerated hernia, right side and hypertension. The patient will be still on antibiotic therapy and the patient will have a consult with Dr. Mccabe, Infectious Disease and will have also a surgical consult with Dr. Haines, so the case was discussed and reviewed with the , the nurse practitioner. Tone Romo MD
[2017-02-04 08:56] LABS: EOSINOPHIL 2 % (0-4); NEUTROPHIL 82 % (50-75); TOTAL CELLS COUNTED 100
[2017-02-04] MEDS ORDERED: Pneumococcal 23-Valent Vaccine IM ONE (10:00)
[2017-02-04] MEDS ORDERED: Midazolam 2 MG/2 ML VIAL ONE (10:37)
[2017-02-04] MEDS ORDERED: Propofol 10 mg/ml Inj (20 ML) ONE (10:37)
--- NOTE | 2017-02-04 11:09 | PCM.SURG1 ---
Surgeon's Initial Post Op Note - Surgeon's Notes Surgeon: Олег Pino MD Dog Or Animal Sitter: None Type of Anesthesia: Local Pre-Operative Diagnosis: Appendiceal abscess Operative Findings: Small complex collection right lower abdomen near the inguinal region. Post-Operative Diagnosis: Abscess Operation Performed: US guided aspiration. Specimen/Specimens Removed: 25 cc of purulent drainage. Estimated Blood Loss: EBL {In ML}: 0 Blood Products Given: N/A Drains Used: No Drains Post-Op Condition: Fair Date of Surgery/Procedure: 02/04/17 Time of Surgery/Procedure: 11:00
--- NOTE | 2017-02-04 11:28 | CP.PCM.PN ---
<May Martinez - Last Filed: 02/04/17 18:43> Subjective - Date & Time of Evaluation Date of Evaluation: 02/04/17 Time of Evaluation: 07:20 - Subjective Subjective: Patient seen and examined this AM. Patient had a fever overnight with tmax 101.1 , now resolved. Patient states that his pain and inflammation seems slightly improved. Objective - Vital Signs/Intake and Output Vital Signs (last 24 hours): Temp Pulse Resp BP Pulse Ox 98 F 84 20 108/64 100 02/04/17 08:57 02/04/17 08:57 02/04/17 08:57 02/04/17 08:57 02/04/17 08:57 Intake and Output: 02/04/17 02/04/17 06:59 18:59 Intake Total 1000 Balance 1000 - Medications Medications: Current Medications Acetaminophen (Tylenol 325mg Tab) 650 mg PO Q6 PRN PRN Reason: Fever >100.4 F Dextrose/Sodium Chloride (Dextrose 5%/0.9% Ns 1000 Ml) 1,000 mls @ 100 mls/hr IV .Q10H [facility] Last Admin: 02/04/17 07:09 Dose: Not Given Metronidazole (Flagyl) 500 mg in 100 mls @ 100 mls/hr IVPB Q6 [facility] Last Admin: 02/04/17 06:21 Dose: 100 mls/hr Piperacillin Sod/Tazobactam (Sod 3.375 gm/ Sodium Chloride) 100 mls @ 200 mls/ hr IVPB Q6 [facility] Last Admin: 02/04/17 06:19 Dose: 200 mls/hr Potassium Chloride/Sodium Chloride (Potassium Chl 20 Meq In Ns) 1,000 mls @ 100 mls/hr IV .Q10H [facility] Last Admin: 02/04/17 07:10 Dose: Not Given Morphine Sulfate (Morphine) 4 mg IVP Q4 PRN PRN Reason: Pain, moderate (4-7) Last Admin: 02/03/17 21:50 Dose: 4 mg Oxycodone/Acetaminophen (Percocet 5/325 Mg Tab) 1 tab PO Q4H PRN PRN Reason: Pain, moderate (4-7) Stop: 02/05/17 20:32 Last Admin: 02/03/17 10:01 Dose: 1 tab Tamsulosin HCl (Flomax) 0.4 mg PO DAILY [facility] Last Admin: 02/04/17 09:55 Dose: 0.4 mg - Labs Labs: 02/04/17 07:29 02/04/17 07:29 PT 14.5 SECONDS (9.7-12.2) H 02/02/17 15:50 INR 1.3 02/02/17 15:50 APTT 31 SECONDS (21-34) 02/02/17 15:50 - Constitutional Appears: No Acute Distress - Head Exam Head Exam: ATRAUMATIC, NORMOCEPHALIC - Eye Exam Eye Exam: Normal appearance. absent: Conjunctival injection, Scleral icterus - ENT Exam ENT Exam: Mucous Membranes Moist, Normal Oropharynx - Respiratory Exam Respiratory Exam: NORMAL BREATHING PATTERN. absent: Accessory Muscle Use, Respiratory Distress - Cardiovascular Exam Cardiovascular Exam: RRR - GI/Abdominal Exam GI & Abdominal Exam: Soft. absent: Distended, Tenderness - Exam Exam: absent: Scrotal Swelling, Testicular Tenderness Additional comments: right inguinal hernia, with surrounding erythema, severely tender to the touch - Extremities Exam Extremities Exam: absent: Calf Tenderness, Pedal Edema, Tenderness - Neurological Exam Neurological Exam: Alert, Awake, Oriented x3 - Psychiatric Exam Psychiatric exam: Normal Affect, Normal Mood - Skin Skin Exam: Dry, Intact, Warm Assessment and Plan - Assessment and Plan (Free Text) Assessment: 56M w/possible perforated appendix with abscess within a right inguinal canal Plan: -Planned percutaneous drainage by IR today--follow up results -Cont IV Abx -Cont IVF -Cont pain mgmt -Continue to trend CBC Discussed with Dr. Noemí Martinez, PGY2 <Nahun Dowd B - Last Filed: 02/04/17 19:27> Objective - Vital Signs/Intake and Output Vital Signs (last 24 hours): Temp Pulse Resp BP Pulse Ox 99.4 F 97 H 20 105/58 L 98 02/04/17 15:00 02/04/17 15:00 02/04/17 15:00 02/04/17 15:00 02/04/17 15:00 Intake and Output: 02/04/17 02/05/17 18:59 06:59 Intake Total 800 Balance 800 - Medications Medications: Current Medications Acetaminophen (Tylenol 325mg Tab) 650 mg PO Q6 PRN PRN Reason: Fever >100.4 F Dextrose/Sodium Chloride (Dextrose 5%/0.9% Ns 1000 Ml) 1,000 mls @ 100 mls/hr IV .Q10H [facility] Last Admin: 02/04/17 07:09 Dose: Not Given Metronidazole (Flagyl) 500 mg in 100 mls @ 100 mls/hr IVPB Q6 [facility] Last Admin: 02/04/17 17:52 Dose: 100 mls/hr Piperacillin Sod/Tazobactam (Sod 3.375 gm/ Sodium Chloride) 100 mls @ 200 mls/ hr IVPB Q6 [facility] Last Admin: 02/04/17 17:52 Dose: 200 mls/hr Potassium Chloride/Sodium Chloride (Potassium Chl 20 Meq In Ns) 1,000 mls @ 100 mls/hr IV .Q10H [facility] Last Admin: 02/04/17 07:10 Dose: Not Given Morphine Sulfate (Morphine) 4 mg IVP Q4 PRN PRN Reason: Pain, moderate (4-7) Last Admin: 02/04/17 14:23 Dose: 4 mg Oxycodone/Acetaminophen (Percocet 5/325 Mg Tab) 1 tab PO Q4H PRN PRN Reason: Pain, moderate (4-7) Stop: 02/05/17 20:32 Last Admin: 02/03/17 10:01 Dose: 1 tab Tamsulosin HCl (Flomax) 0.4 mg PO DAILY [facility] Last Admin: 02/04/17 09:55 Dose: 0.4 mg - Labs Labs: 02/04/17 07:29 02/04/17 07:29 PT 14.5 SECONDS (9.7-12.2) H 02/02/17 15:50 INR 1.3 02/02/17 15:50 APTT 31 SECONDS (21-34) 02/02/17 15:50 Attending/Attestation - Attestation I have personally seen and examined this patient.: Yes I have fully participated in the care of the patient.: Yes I have reviewed all pertinent clinical information, including history, physical exam and plan: Yes Notes (Text): 02/04/17 19:26 Pt was seen and examined at bedside on 02/04/17 Agree with above note and assessment Pt with Perf Appendicitis with abscess in right inguinal canal S/P IR drainage Improving clinically C/w IV antibiotics Plan d.w pt in detail Risk and benefit explained in detail
--- NOTE | 2017-02-04 11:37 | CP.PCM.PN ---
Subjective - Date & Time of Evaluation Date of Evaluation: 02/04/17 Time of Evaluation: 11:37 - Subjective Subjective: PT SEEN WITH DR. SANTOS RIGHT AFTER DRAINAGE BY IR. PT STATES HE FEELS MORE COMFORTABLE AND BETTER. TOLERATED PROCEDURE WELL. DISCUSSED PLAN W PT AND SON. PT TO BE RE-EVAL'D TOMORROW MORNING. PENDING AM LABS. TO F/U WITH PT AND ARRANGE APPROPRIATE D/C PLAN. NO FURTHER ORDERS. Objective - Vital Signs/Intake and Output Vital Signs (last 24 hours): Temp Pulse Resp BP Pulse Ox 98 F 84 20 108/64 100 02/04/17 08:57 02/04/17 08:57 02/04/17 08:57 02/04/17 08:57 02/04/17 08:57 Intake and Output: 02/04/17 02/04/17 06:59 18:59 Intake Total 1000 Balance 1000 - Medications Medications: Current Medications Acetaminophen (Tylenol 325mg Tab) 650 mg PO Q6 PRN PRN Reason: Fever >100.4 F Dextrose/Sodium Chloride (Dextrose 5%/0.9% Ns 1000 Ml) 1,000 mls @ 100 mls/hr IV .Q10H [facility] Last Admin: 02/04/17 07:09 Dose: Not Given Metronidazole (Flagyl) 500 mg in 100 mls @ 100 mls/hr IVPB Q6 [facility] Last Admin: 02/04/17 06:21 Dose: 100 mls/hr Piperacillin Sod/Tazobactam (Sod 3.375 gm/ Sodium Chloride) 100 mls @ 200 mls/ hr IVPB Q6 [facility] Last Admin: 02/04/17 06:19 Dose: 200 mls/hr Potassium Chloride/Sodium Chloride (Potassium Chl 20 Meq In Ns) 1,000 mls @ 100 mls/hr IV .Q10H [facility] Last Admin: 02/04/17 07:10 Dose: Not Given Morphine Sulfate (Morphine) 4 mg IVP Q4 PRN PRN Reason: Pain, moderate (4-7) Last Admin: 02/03/17 21:50 Dose: 4 mg Oxycodone/Acetaminophen (Percocet 5/325 Mg Tab) 1 tab PO Q4H PRN PRN Reason: Pain, moderate (4-7) Stop: 02/05/17 20:32 Last Admin: 02/03/17 10:01 Dose: 1 tab Tamsulosin HCl (Flomax) 0.4 mg PO DAILY [facility] Last Admin: 02/04/17 09:55 Dose: 0.4 mg - Labs Labs: 02/04/17 07:29 02/04/17 07:29 PT 14.5 SECONDS (9.7-12.2) H 02/02/17 15:50 INR 1.3 02/02/17 15:50 APTT 31 SECONDS (21-34) 02/02/17 15:50
[2017-02-04] MEDS: Morphine 4 MG/ML VIAL IVP PRN (14:23)
--- NOTE | 2017-02-04 20:14 | CP.PCM.PN ---
Subjective - Date & Time of Evaluation Date of Evaluation: 02/04/17 Time of Evaluation: 06:15 - Subjective Subjective: dictated Objective - Vital Signs/Intake and Output Vital Signs (last 24 hours): Temp Pulse Resp BP Pulse Ox 99.4 F 97 H 20 105/58 L 98 02/04/17 15:00 02/04/17 15:00 02/04/17 15:00 02/04/17 15:00 02/04/17 15:00 Intake and Output: 02/04/17 02/05/17 18:59 06:59 Intake Total 800 Balance 800 - Medications Medications: Current Medications Acetaminophen (Tylenol 325mg Tab) 650 mg PO Q6 PRN PRN Reason: Fever >100.4 F Dextrose/Sodium Chloride (Dextrose 5%/0.9% Ns 1000 Ml) 1,000 mls @ 100 mls/hr IV .Q10H [facility] Last Admin: 02/04/17 07:09 Dose: Not Given Metronidazole (Flagyl) 500 mg in 100 mls @ 100 mls/hr IVPB Q6 [facility] Last Admin: 02/04/17 17:52 Dose: 100 mls/hr Piperacillin Sod/Tazobactam (Sod 3.375 gm/ Sodium Chloride) 100 mls @ 200 mls/ hr IVPB Q6 [facility] Last Admin: 02/04/17 17:52 Dose: 200 mls/hr Potassium Chloride/Sodium Chloride (Potassium Chl 20 Meq In Ns) 1,000 mls @ 100 mls/hr IV .Q10H [facility] Last Admin: 02/04/17 07:10 Dose: Not Given Morphine Sulfate (Morphine) 4 mg IVP Q4 PRN PRN Reason: Pain, moderate (4-7) Last Admin: 02/04/17 14:23 Dose: 4 mg Oxycodone/Acetaminophen (Percocet 5/325 Mg Tab) 1 tab PO Q4H PRN PRN Reason: Pain, moderate (4-7) Stop: 02/05/17 20:32 Last Admin: 02/03/17 10:01 Dose: 1 tab Tamsulosin HCl (Flomax) 0.4 mg PO DAILY [facility] Last Admin: 02/04/17 09:55 Dose: 0.4 mg - Labs Labs: 02/04/17 07:29 02/04/17 07:29 PT 14.5 SECONDS (9.7-12.2) H 02/02/17 15:50 INR 1.3 02/02/17 15:50 APTT 31 SECONDS (21-34) 02/02/17 15:50 Assessment and Plan (1) Acute appendicitis with appendiceal abscess Status: Acute (2) Inguinal hernia, incarcerated Status: Acute
--- NOTE | 2017-02-04 23:57 | PN ---
SUBJECTIVE: Today, patient is more alert and awake, feels more comfortable, with less pain to the right groin and denied any shortness of breath or chest pain by the patient. PHYSICAL EXAMINATION VITAL SIGNS: The patient has a blood pressure of 105/68, pulse 97, respiration is 20, temperature is 99.4. NECK: Supple. No JVD. LUNGS: Clear. HEART: Regular rate and rhythm. ABDOMEN: Soft, but there is an induration to the left side of the groin, which showed tenderness in the right groin, in the right lower quadrant. The right is embossing machine tender and also there is a drain plus is running to the right one. EXTREMITIES: There is no edema. LABORATORY DATA: Patient had some labs drawn. WBC is 14.5, hemoglobin 11.7, hematocrit 34.9, and platelets is 506. Chemistry: Sodium 137, potassium 3.7, chloride 98, BUN is 21, creatinine 1. Bicarbonate is 22. Calcium 8.5. ASSESSMENT: Today, the patient has drainage of the abscess of the right inguinal area. He was given about 15 to 17 mL of purulent secretion and the patient was doing well after the intervention. PLAN: To continue the antiplatelet therapy and the case also was discussed with the surgeon earlier, and the review is conservative treatment at this point and no surgery yet for now, but we will consider surgery later. Dictation was reviewed and examined with Rina Hodgson, the nurse practitioner and we agree with management. I will be away from 02/05 to 02/16 and I will be covered by Dr. Mason Kendrick. Tone Romo MD
[2017-02-05] MEDS: metroNIDAZOLE IV 500 mg/100 ml 500 MG/100 ML BAG IVPB SCH ×4 (00:05→17:36)
[2017-02-05] MEDS: Piperacillin/Tazobact 3.375 GM in Sodium Chloride 0.9% 100 ML IVPB SCH ×4 (01:00→17:36)
--- NOTE | 2017-02-05 01:40 | PN ---
INFECTIOUS DISEASE FOLLOWUP SUBJECTIVE: The patient was seen today. He was trying to eat. He said it was his first meal after a longtime. He did go for I and D and I saw dressing on the right lower quadrant. PHYSICAL EXAMINATION: VITAL SIGNS: T-max is 99.4, pulse is 97, blood pressure 105/58, and respirations are 20. GENERAL: He said he feels slightly better. HEENT: Head is atraumatic, normocephalic. NECK: Supple. LUNGS: Clear. No crackles or rales present. HEART: S1 and S2 is regular. ABDOMEN: Soft. There is some right lower quadrant pain. EXTREMITIES: Had no edema, clubbing or cyanosis. LABORATORY DATA: Labs are noted. Labs show withe count is 14.5, hemoglobin 11.7, hematocrit 34.9, platelet count is 406. We will repeat the labs tomorrow along with the PT, PTT, so that he can get a line and to see what the organism grows from the body fluid, he should be kept here until we know what organism is growing as his white count is still increasing and Dr. Foster follow him. The patient at this time is on Zosyn and Flagyl. He probably will need IV antibiotics and will need a PICC line and need to take antibiotic for at least 4 weeks and to repeat the CAT scan after the third week. He will need a PICC line; he needs to go on Zosyn IV and Flagyl p.o. and I will be away, so should consider putting a PICC line as he did had a septic appendix and will need antibiotics for longtime even though they aspirated it and Dr. Foster will be covering me till 02/16/2017 and I will endorse this patient to him. Maria L Mccabe MD
[2017-02-05] MEDS: Potassium Chl 20 mEq in NS 1,000 ML IV SCH ×3 (05:25→15:45)
[2017-02-05 08:46] LABS: BASO # 0.1 K/uL (0.0-0.2); BASO % 0.7 % (0.0-2.0); EOS # 0.3 K/uL (0.0-0.7); EOS % 1.9 % (0.0-4.0); HEMATOCRIT 36.9 % (35.0-51.0); LYMPH # 1.6 K/uL (1.0-4.3); LYMPH % 11.3 % (20.0-40.0); MEAN CELL VOLUME 84.6 fL (80.0-94.0); MEAN CORPUSCULAR HEMOGLOBIN 27.4 pg (27.0-31.0); MEAN CORPUSCULAR HGB CONC 32.4 g/dL (33.0-37.0); MEAN PLATELET VOLUME 7.7 fL (7.2-11.7); MONO # 0.9 K/uL (0.0-0.8); MONO % 6.1 % (0.0-10.0); RED CELL DISTRIBUTION WIDTH 13.7 % (11.5-14.5)
[2017-02-05 08:52] LABS: INR 1.4
[2017-02-05 09:02] LABS: CHLORIDE 97 mmol/L (98-107); SODIUM 135 mmol/L (132-148)
[2017-02-05 09:03] LABS: POTASSIUM 4.3 mmol/L (3.6-5.2)
[2017-02-05 09:05] LABS: ALB/GLOB RATIO 0.9 (1.0-2.1); ALKALINE PHOSPHATASE 108 U/L (38-126); AST/SGOT 29 U/L (17-59); BILIRUBIN,TOTAL 0.8 mg/dL (0.2-1.3); BLOOD UREA NITROGEN 9 mg/dL (9-20); CARBON DIOXIDE 19 mmol/L (22-30); GFR AFRICAN-AMERICAN > 60; TOTAL PROTEIN 6.8 g/dL (6.3-8.3)
[2017-02-05 09:06] LABS: ALT/SGPT 34 U/L (21-72); CALCIUM 8.6 mg/dl (8.6-10.4); GLUCOSE,RANDOM 72 mg/dL (75-110)
--- NOTE | 2017-02-05 11:06 | CP.PCM.PN ---
<Natty Zimmerman - Last Filed: 02/06/17 06:08> Subjective - Date & Time of Evaluation Date of Evaluation: 02/05/17 Time of Evaluation: 09:45 - Subjective Subjective: General surgery progress note for Dr. Dowd-Natty Zimmerman, PGY-1 Pt S & E at bedside. Pt doing well overnight, pain significantly improved. Tolerating diet. No fevers over last 24H. Objective - Vital Signs/Intake and Output Vital Signs (last 24 hours): Temp Pulse Resp BP Pulse Ox 98 F 88 20 103/59 L 100 02/05/17 08:31 02/05/17 08:31 02/05/17 08:31 02/05/17 08:31 02/05/17 08:31 Intake and Output: 02/05/17 02/05/17 06:59 18:59 Intake Total 1400 Output Total 600 Balance 800 - Medications Medications: Current Medications Acetaminophen (Tylenol 325mg Tab) 650 mg PO Q6 PRN PRN Reason: Fever >100.4 F Dextrose/Sodium Chloride (Dextrose 5%/0.9% Ns 1000 Ml) 1,000 mls @ 100 mls/hr IV .Q10H [facility] Last Admin: 02/04/17 21:43 Dose: Not Given Metronidazole (Flagyl) 500 mg in 100 mls @ 100 mls/hr IVPB Q6 [facility] Last Admin: 02/05/17 05:15 Dose: 100 mls/hr Piperacillin Sod/Tazobactam (Sod 3.375 gm/ Sodium Chloride) 100 mls @ 200 mls/ hr IVPB Q6 [facility] Last Admin: 02/05/17 06:15 Dose: 200 mls/hr Potassium Chloride/Sodium Chloride (Potassium Chl 20 Meq In Ns) 1,000 mls @ 100 mls/hr IV .Q10H [facility] Last Admin: 02/05/17 10:37 Dose: 100 mls/hr Morphine Sulfate (Morphine) 4 mg IVP Q4 PRN PRN Reason: Pain, moderate (4-7) Last Admin: 02/04/17 14:23 Dose: 4 mg Oxycodone/Acetaminophen (Percocet 5/325 Mg Tab) 1 tab PO Q4H PRN PRN Reason: Pain, moderate (4-7) Stop: 02/05/17 20:32 Last Admin: 02/03/17 10:01 Dose: 1 tab Tamsulosin HCl (Flomax) 0.4 mg PO DAILY [facility] Last Admin: 02/05/17 10:36 Dose: 0.4 mg - Labs Labs: 02/05/17 08:32 02/05/17 08:32 PT 16.5 SECONDS (9.7-12.2) H 02/05/17 08:32 INR 1.4 02/05/17 08:32 APTT 28 SECONDS (21-34) 02/05/17 08:32 - Constitutional Appears: Non-toxic, No Acute Distress - Head Exam Head Exam: ATRAUMATIC, NORMAL INSPECTION, NORMOCEPHALIC - Eye Exam Eye Exam: EOMI, Normal appearance - ENT Exam ENT Exam: Mucous Membranes Moist, Normal Exam - Neck Exam Neck Exam: Full ROM - Respiratory Exam Respiratory Exam: Clear to Ausculation Bilateral, NORMAL BREATHING PATTERN - Cardiovascular Exam Cardiovascular Exam: REGULAR RHYTHM, +S1, +S2 - GI/Abdominal Exam GI & Abdominal Exam: Soft, Normal Bowel Sounds - Extremities Exam Extremities Exam: Tenderness Additional comments: right inguinal hernia, with surrounding induration, moderately tender to the palpation, dressing in place -C/D/I - Neurological Exam Neurological Exam: Alert, Awake, CN II-XII Intact, Oriented x3 - Psychiatric Exam Psychiatric exam: Normal Affect, Normal Mood - Skin Skin Exam: Dry, Intact, Normal Color, Warm Assessment and Plan - Assessment and Plan (Free Text) Assessment: 56M w/perforated appendicitis s/p IR drainage with clinical improvement Plan: Continues w/leukocytosis Cont IV Abx Ambulate Pain mgmt DVT ppx Will DW attending Elsie, PGY-1 <Nahun Dowd B - Last Filed: 02/07/17 22:23> Objective - Vital Signs/Intake and Output Vital Signs (last 24 hours): Temp Pulse Resp BP Pulse Ox 98.6 F 85 20 102/64 100 02/07/17 16:00 02/07/17 16:00 02/07/17 16:00 02/07/17 16:00 02/07/17 16:00 Intake and Output: 02/07/17 02/08/17 18:59 06:59 Intake Total 1400 Output Total 1500 Balance -100 - Medications Medications: Current Medications Acetaminophen (Tylenol 325mg Tab) 650 mg PO Q6 PRN PRN Reason: Fever >100.4 F Enoxaparin Sodium (Lovenox) 40 mg SC DAILY [facility] Last Admin: 02/07/17 10:12 Dose: 40 mg Famotidine (Pepcid) 20 mg PO BID [facility] Last Admin: 02/07/17 17:46 Dose: 20 mg Metronidazole (Flagyl) 500 mg in 100 mls @ 100 mls/hr IVPB Q6 [facility] Last Admin: 02/07/17 17:47 Dose: 100 mls/hr Piperacillin Sod/Tazobactam (Sod 3.375 gm/ Sodium Chloride) 100 mls @ 200 mls/ hr IVPB Q6 [facility] Last Admin: 02/07/17 18:00 Dose: 200 mls/hr Morphine Sulfate (Morphine) 4 mg IVP Q4 PRN PRN Reason: Pain, moderate (4-7) Last Admin: 02/06/17 17:14 Dose: 4 mg Ondansetron HCl (Zofran Inj) 4 mg IVP Q6 PRN PRN Reason: Nausea/Vomiting Tamsulosin HCl (Flomax) 0.4 mg PO DAILY [facility] Last Admin: 02/07/17 10:12 Dose: 0.4 mg - Labs Labs: 02/07/17 06:59 02/07/17 06:59 PT 16.5 SECONDS (9.7-12.2) H 02/05/17 08:32 INR 1.4 02/05/17 08:32 APTT 28 SECONDS (21-34) 02/05/17 08:32 Attending/Attestation - Attestation I have personally seen and examined this patient.: Yes I have fully participated in the care of the patient.: Yes I have reviewed all pertinent clinical information, including history, physical exam and plan: Yes Notes (Text): 02/07/17 22:23 Pt was seen and examined at bedside on 02/04/17 Agree with above note and assessment Pt with resolving perf appendicitis with abscess S/P IR drainage C.w iv antibiotics DC plan Plan d.w pt in detail Risk and benefit explained in detail
[2017-02-05] MEDS: Enoxaparin 40 mg Syringe SC SCH (11:44)
--- NOTE | 2017-02-05 17:38 | CP.PCM.PN ---
Subjective - Date & Time of Evaluation Date of Evaluation: 02/05/17 Time of Evaluation: 17:36 - Subjective Subjective: PER DR. GARCIA RECOMMENDATIONS, PICC TO BE INSERTED AND 4 WEEKS OF IV ABX WITH PO FLAGYL. DISCUSSED WITH PT AND HE WILL DECIDE ON HOME INFUSION VERSUS [facility] FOR ABX. PENDING PICC INSERTION. WILL FOLLOW UP IN THE AM. LABS ALREADY ORDERED BY SURGICAL TEAM. Objective - Vital Signs/Intake and Output Vital Signs (last 24 hours): Temp Pulse Resp BP Pulse Ox 99.5 F 79 20 129/73 100 02/05/17 15:00 02/05/17 15:00 02/05/17 15:00 02/05/17 15:00 02/05/17 15:00 Intake and Output: 02/05/17 02/05/17 06:59 18:59 Intake Total 1400 Output Total 600 Balance 800 - Medications Medications: Current Medications Acetaminophen (Tylenol 325mg Tab) 650 mg PO Q6 PRN PRN Reason: Fever >100.4 F Enoxaparin Sodium (Lovenox) 40 mg SC DAILY [facility] Last Admin: 02/05/17 11:44 Dose: 40 mg Famotidine (Pepcid) 20 mg PO BID [facility] Last Admin: 02/05/17 17:36 Dose: 20 mg Metronidazole (Flagyl) 500 mg in 100 mls @ 100 mls/hr IVPB Q6 [facility] Last Admin: 02/05/17 11:45 Dose: 100 mls/hr Piperacillin Sod/Tazobactam (Sod 3.375 gm/ Sodium Chloride) 100 mls @ 200 mls/ hr IVPB Q6 [facility] Last Admin: 02/05/17 17:36 Dose: 200 mls/hr Potassium Chloride/Sodium Chloride (Potassium Chl 20 Meq In Ns) 1,000 mls @ 100 mls/hr IV .Q10H [facility] Last Admin: 02/05/17 10:37 Dose: 100 mls/hr Morphine Sulfate (Morphine) 4 mg IVP Q4 PRN PRN Reason: Pain, moderate (4-7) Last Admin: 02/04/17 14:23 Dose: 4 mg Ondansetron HCl (Zofran Inj) 4 mg IVP Q6 PRN PRN Reason: Nausea/Vomiting Oxycodone/Acetaminophen (Percocet 5/325 Mg Tab) 1 tab PO Q4H PRN PRN Reason: Pain, moderate (4-7) Stop: 02/05/17 20:32 Last Admin: 02/03/17 10:01 Dose: 1 tab Tamsulosin HCl (Flomax) 0.4 mg PO DAILY [facility] Last Admin: 02/05/17 10:36 Dose: 0.4 mg - Labs Labs: 02/05/17 08:32 02/05/17 08:32 PT 16.5 SECONDS (9.7-12.2) H 02/05/17 08:32 INR 1.4 02/05/17 08:32 APTT 28 SECONDS (21-34) 02/05/17 08:32
[2017-02-05] MEDS: Morphine 4 MG/ML VIAL IVP PRN (18:10)
--- NOTE | 2017-02-05 19:21 | CP.PCM.PN ---
Subjective - Date & Time of Evaluation Date of Evaluation: 02/05/17 Time of Evaluation: 09:10 - Subjective Subjective: clinically same Objective - Vital Signs/Intake and Output Vital Signs (last 24 hours): Temp Pulse Resp BP Pulse Ox 99.5 F 79 20 129/73 100 02/05/17 15:00 02/05/17 15:00 02/05/17 15:00 02/05/17 15:00 02/05/17 15:00 - Medications Medications: Current Medications Acetaminophen (Tylenol 325mg Tab) 650 mg PO Q6 PRN PRN Reason: Fever >100.4 F Enoxaparin Sodium (Lovenox) 40 mg SC DAILY [facility] Last Admin: 02/05/17 11:44 Dose: 40 mg Famotidine (Pepcid) 20 mg PO BID [facility] Last Admin: 02/05/17 17:36 Dose: 20 mg Metronidazole (Flagyl) 500 mg in 100 mls @ 100 mls/hr IVPB Q6 [facility] Last Admin: 02/05/17 17:36 Dose: 100 mls/hr Piperacillin Sod/Tazobactam (Sod 3.375 gm/ Sodium Chloride) 100 mls @ 200 mls/ hr IVPB Q6 [facility] Last Admin: 02/05/17 17:36 Dose: 200 mls/hr Potassium Chloride/Sodium Chloride (Potassium Chl 20 Meq In Ns) 1,000 mls @ 100 mls/hr IV .Q10H [facility] Last Admin: 02/05/17 15:45 Dose: 100 mls/hr Morphine Sulfate (Morphine) 4 mg IVP Q4 PRN PRN Reason: Pain, moderate (4-7) Last Admin: 02/05/17 18:10 Dose: 4 mg Ondansetron HCl (Zofran Inj) 4 mg IVP Q6 PRN PRN Reason: Nausea/Vomiting Oxycodone/Acetaminophen (Percocet 5/325 Mg Tab) 1 tab PO Q4H PRN PRN Reason: Pain, moderate (4-7) Stop: 02/05/17 20:32 Last Admin: 02/03/17 10:01 Dose: 1 tab Tamsulosin HCl (Flomax) 0.4 mg PO DAILY [facility] Last Admin: 02/05/17 10:36 Dose: 0.4 mg - Labs Labs: 02/05/17 08:32 02/05/17 08:32 PT 16.5 SECONDS (9.7-12.2) H 02/05/17 08:32 INR 1.4 02/05/17 08:32 APTT 28 SECONDS (21-34) 02/05/17 08:32 - Constitutional Appears: Well - Head Exam Head Exam: ATRAUMATIC, NORMAL INSPECTION, NORMOCEPHALIC - Eye Exam Eye Exam: EOMI, Normal appearance, PERRL - ENT Exam ENT Exam: Mucous Membranes Moist, Normal Exam - Neck Exam Neck Exam: Full ROM, Normal Inspection. absent: Lymphadenopathy - Respiratory Exam Respiratory Exam: Decreased Breath Sounds - Cardiovascular Exam Cardiovascular Exam: REGULAR RHYTHM, +S1, +S2. absent: Murmur - GI/Abdominal Exam GI & Abdominal Exam: Diminished Bowel Sounds - Rectal Exam Rectal Exam: Deferred Assessment and Plan (1) Acute appendicitis with appendiceal abscess Status: Acute (2) Inguinal hernia, incarcerated Status: Acute - Assessment and Plan (Free Text) Plan: Patient seen and examined bedside Continue antibiotics Lovenox Metronidazole Zosyn Morphine Percocet DVT prophylaxis Ambulate the patient
[2017-02-06] MEDS: Piperacillin/Tazobact 3.375 GM in Sodium Chloride 0.9% 100 ML IVPB SCH ×4 (01:00→17:11)
[2017-02-06] MEDS: Potassium Chl 20 mEq in NS 1,000 ML IV SCH ×3 (05:00→23:30)
[2017-02-06] MEDS: metroNIDAZOLE IV 500 mg/100 ml 500 MG/100 ML BAG IVPB SCH ×4 (05:15→17:12)
--- NOTE | 2017-02-06 08:02 | CP.PCM.PN ---
<Natty Zimmerman - Last Filed: 02/06/17 15:03> Subjective - Date & Time of Evaluation Date of Evaluation: 02/06/17 Time of Evaluation: 07:00 - Subjective Subjective: General surgery progress note for Dr. Dowd-Natty Zimmerman, PGY-1 Pt S & E at bedside. Pt doing well overnight, pain significantly improved- minimal. Tolerating diet , ambulating. BM this AM. No fevers over last 48H. Denies N/V/F/C, SOB, CP. Objective - Vital Signs/Intake and Output Vital Signs (last 24 hours): Temp Pulse Resp BP Pulse Ox 98.4 F 84 20 111/63 100 02/06/17 05:30 02/06/17 00:28 02/06/17 00:28 02/06/17 00:28 02/06/17 00:28 Intake and Output: 02/06/17 02/06/17 06:59 18:59 Intake Total 2300 Output Total 3 Balance 2297 - Medications Medications: Current Medications Acetaminophen (Tylenol 325mg Tab) 650 mg PO Q6 PRN PRN Reason: Fever >100.4 F Enoxaparin Sodium (Lovenox) 40 mg SC DAILY [facility] Last Admin: 02/05/17 11:44 Dose: 40 mg Famotidine (Pepcid) 20 mg PO BID [facility] Last Admin: 02/05/17 17:36 Dose: 20 mg Metronidazole (Flagyl) 500 mg in 100 mls @ 100 mls/hr IVPB Q6 [facility] Last Admin: 02/06/17 05:15 Dose: 100 mls/hr Piperacillin Sod/Tazobactam (Sod 3.375 gm/ Sodium Chloride) 100 mls @ 200 mls/ hr IVPB Q6 [facility] Last Admin: 02/06/17 06:15 Dose: 200 mls/hr Potassium Chloride/Sodium Chloride (Potassium Chl 20 Meq In Ns) 1,000 mls @ 100 mls/hr IV .Q10H [facility] Last Admin: 02/06/17 05:00 Dose: 100 mls/hr Morphine Sulfate (Morphine) 4 mg IVP Q4 PRN PRN Reason: Pain, moderate (4-7) Last Admin: 02/05/17 18:10 Dose: 4 mg Ondansetron HCl (Zofran Inj) 4 mg IVP Q6 PRN PRN Reason: Nausea/Vomiting Tamsulosin HCl (Flomax) 0.4 mg PO DAILY [facility] Last Admin: 02/05/17 10:36 Dose: 0.4 mg - Labs Labs: 02/05/17 08:32 02/05/17 08:32 PT 16.5 SECONDS (9.7-12.2) H 02/05/17 08:32 INR 1.4 02/05/17 08:32 APTT 28 SECONDS (21-34) 02/05/17 08:32 - Constitutional Appears: Non-toxic, No Acute Distress - Head Exam Head Exam: ATRAUMATIC, NORMAL INSPECTION, NORMOCEPHALIC - Eye Exam Eye Exam: EOMI, Normal appearance - ENT Exam ENT Exam: Mucous Membranes Moist, Normal Exam - Neck Exam Neck Exam: Full ROM - Respiratory Exam Respiratory Exam: Clear to Ausculation Bilateral, NORMAL BREATHING PATTERN - Cardiovascular Exam Cardiovascular Exam: REGULAR RHYTHM, +S1, +S2 - GI/Abdominal Exam GI & Abdominal Exam: Soft, Normal Bowel Sounds. absent: Distended, Firm, Guarding, Rigid, Tenderness - Extremities Exam Extremities Exam: Tenderness (minimal, over right groin, induration improved, area of induration decreasing) - Neurological Exam Neurological Exam: Alert, Awake, Oriented x3 - Psychiatric Exam Psychiatric exam: Normal Affect, Normal Mood - Skin Skin Exam: Dry, Normal Color, Warm Assessment and Plan - Assessment and Plan (Free Text) Assessment: 56M w/perforated appendicitis s/p IR drainage, significantly improved clinically Plan: No surgical intervention at this time S/p IR drainage of abscess Ok to d/c home on PO Augmentin from surgical standpoint Please follow up with Dr. Dowd in his office in 2 wks Further mgmt as per primary team Thank you for this consult DW attending Elsie, PGY-1 <Nahun Dowd B - Last Filed: 02/07/17 22:26> Objective - Vital Signs/Intake and Output Vital Signs (last 24 hours): Temp Pulse Resp BP Pulse Ox 98.6 F 85 20 102/64 100 02/07/17 16:00 02/07/17 16:00 02/07/17 16:00 02/07/17 16:00 02/07/17 16:00 Intake and Output: 02/07/17 02/08/17 18:59 06:59 Intake Total 1400 Output Total 1500 Balance -100 - Medications Medications: Current Medications Acetaminophen (Tylenol 325mg Tab) 650 mg PO Q6 PRN PRN Reason: Fever >100.4 F Enoxaparin Sodium (Lovenox) 40 mg SC DAILY [facility] Last Admin: 02/07/17 10:12 Dose: 40 mg Famotidine (Pepcid) 20 mg PO BID [facility] Last Admin: 02/07/17 17:46 Dose: 20 mg Metronidazole (Flagyl) 500 mg in 100 mls @ 100 mls/hr IVPB Q6 [facility] Last Admin: 02/07/17 17:47 Dose: 100 mls/hr Piperacillin Sod/Tazobactam (Sod 3.375 gm/ Sodium Chloride) 100 mls @ 200 mls/ hr IVPB Q6 [facility] Last Admin: 02/07/17 18:00 Dose: 200 mls/hr Morphine Sulfate (Morphine) 4 mg IVP Q4 PRN PRN Reason: Pain, moderate (4-7) Last Admin: 02/06/17 17:14 Dose: 4 mg Ondansetron HCl (Zofran Inj) 4 mg IVP Q6 PRN PRN Reason: Nausea/Vomiting Tamsulosin HCl (Flomax) 0.4 mg PO DAILY [facility] Last Admin: 02/07/17 10:12 Dose: 0.4 mg - Labs Labs: 02/07/17 06:59 02/07/17 06:59 PT 16.5 SECONDS (9.7-12.2) H 02/05/17 08:32 INR 1.4 02/05/17 08:32 APTT 28 SECONDS (21-34) 02/05/17 08:32 Attending/Attestation - Attestation I have personally seen and examined this patient.: Yes I have fully participated in the care of the patient.: Yes I have reviewed all pertinent clinical information, including history, physical exam and plan: Yes Notes (Text): 02/07/17 22:25 Pt was seen and examined at bedside on 02/06/17 Agree with above note and assessment Pt with resolving perf appendicitis with abscess DC plan with Po antibiotics Reg diet Plan d.w pt in detail Risk and benefit explained in detail
[2017-02-06 08:27] LABS: BASO # 0.1 K/uL (0.0-0.2); BASO % 0.5 % (0.0-2.0); EOS # 0.3 K/uL (0.0-0.7); EOS % 2.7 % (0.0-4.0); HEMATOCRIT 36.1 % (35.0-51.0); LYMPH # 1.4 K/uL (1.0-4.3); LYMPH % 11.5 % (20.0-40.0); MEAN CORPUSCULAR HEMOGLOBIN 27.3 pg (27.0-31.0); MEAN CORPUSCULAR HGB CONC 33.2 g/dL (33.0-37.0); MEAN PLATELET VOLUME 7.3 fL (7.2-11.7); MONO # 0.8 K/uL (0.0-0.8); MONO % 6.1 % (0.0-10.0); RED CELL DISTRIBUTION WIDTH 13.6 % (11.5-14.5); WHITE BLOOD COUNT 12.4 K/uL (4.8-10.8)
[2017-02-06 08:28] LABS: MEAN CELL VOLUME 82.1 fL (80.0-94.0)
[2017-02-06 08:43] LABS: CHLORIDE 95 mmol/L (98-107); SODIUM 134 mmol/L (132-148)
[2017-02-06 08:45] LABS: GFR AFRICAN-AMERICAN > 60
[2017-02-06 08:46] LABS: BLOOD UREA NITROGEN 6 mg/dL (9-20); CALCIUM 8.5 mg/dl (8.6-10.4); CARBON DIOXIDE 24 mmol/L (22-30); GLUCOSE,RANDOM 98 mg/dL (75-110)
[2017-02-06] MEDS: Enoxaparin 40 mg Syringe SC SCH (10:41)
--- NOTE | 2017-02-06 14:45 | RAD ---
HISTORY: verify right PICC COMPARISON: Chest x-ray performed 02/02/17 TECHNIQUE: Chest, one view. FINDINGS: Right-sided PICC extends to the cavoatrial junction. LUNGS: No focal consolidation. Please note that chest x-ray has limited sensitivity for the detection of pulmonary masses. PLEURA: No significant pleural effusion identified. No definite pneumothorax . CARDIOVASCULAR: The cardiomediastinal silhouette appears within normal limits of size. OSSEOUS STRUCTURES: No acute osseous abnormality identified. VISUALIZED UPPER ABDOMEN: Unremarkable. OTHER FINDINGS: None. IMPRESSION: Right-sided PICC extends to the cavoatrial junction.
--- NOTE | 2017-02-06 15:34 | CP.PCM.PN ---
Subjective - Date & Time of Evaluation Date of Evaluation: 02/06/17 Time of Evaluation: 08:20 - Subjective Subjective: clinically same Objective - Vital Signs/Intake and Output Vital Signs (last 24 hours): Temp Pulse Resp BP Pulse Ox 98.4 F 84 20 111/63 100 02/06/17 05:30 02/06/17 00:28 02/06/17 00:28 02/06/17 00:28 02/06/17 00:28 Intake and Output: 02/06/17 02/06/17 06:59 18:59 Intake Total 2300 1600 Output Total 3 Balance 2297 1600 - Medications Medications: Current Medications Acetaminophen (Tylenol 325mg Tab) 650 mg PO Q6 PRN PRN Reason: Fever >100.4 F Enoxaparin Sodium (Lovenox) 40 mg SC DAILY [facility] Last Admin: 02/06/17 10:41 Dose: 40 mg Famotidine (Pepcid) 20 mg PO BID [facility] Last Admin: 02/06/17 10:43 Dose: 20 mg Metronidazole (Flagyl) 500 mg in 100 mls @ 100 mls/hr IVPB Q6 [facility] Last Admin: 02/06/17 11:46 Dose: 100 mls/hr Piperacillin Sod/Tazobactam (Sod 3.375 gm/ Sodium Chloride) 100 mls @ 200 mls/ hr IVPB Q6 [facility] Last Admin: 02/06/17 11:00 Dose: 200 mls/hr Morphine Sulfate (Morphine) 4 mg IVP Q4 PRN PRN Reason: Pain, moderate (4-7) Last Admin: 02/05/17 18:10 Dose: 4 mg Ondansetron HCl (Zofran Inj) 4 mg IVP Q6 PRN PRN Reason: Nausea/Vomiting Tamsulosin HCl (Flomax) 0.4 mg PO DAILY [facility] Last Admin: 02/06/17 10:43 Dose: 0.4 mg - Labs Labs: 02/06/17 08:10 02/06/17 08:10 PT 16.5 SECONDS (9.7-12.2) H 02/05/17 08:32 INR 1.4 02/05/17 08:32 APTT 28 SECONDS (21-34) 02/05/17 08:32 - Constitutional Appears: Well - Head Exam Head Exam: ATRAUMATIC, NORMAL INSPECTION, NORMOCEPHALIC - Eye Exam Eye Exam: EOMI, Normal appearance, PERRL Pupil Exam: NORMAL ACCOMODATION, PERRL - ENT Exam ENT Exam: Mucous Membranes Moist, Normal Exam - Neck Exam Neck Exam: Full ROM, Normal Inspection. absent: Lymphadenopathy - Respiratory Exam Respiratory Exam: Decreased Breath Sounds - Cardiovascular Exam Cardiovascular Exam: REGULAR RHYTHM, +S1, +S2 - GI/Abdominal Exam GI & Abdominal Exam: Soft, Diminished Bowel Sounds - Rectal Exam Rectal Exam: Deferred Assessment and Plan (1) Acute appendicitis with appendiceal abscess Status: Acute (2) Inguinal hernia, incarcerated Status: Acute - Assessment and Plan (Free Text) Plan: Patient clinically improving No acute event overnight Pain improved Tolerating diet Zosyn Flagyl Lovenox Morphine Wound care
--- NOTE | 2017-02-06 16:38 | CP.PCM.PN ---
Subjective - Date & Time of Evaluation Date of Evaluation: 02/06/17 Time of Evaluation: 16:37 - Subjective Subjective: DISCUSSED AT LENGTH PLAN FOR 4 WEEKS OF IV ABX WITH THE PT AGAIN. DR. SANTOS ALSO SPOKE WITH THE PT REGARDING THE IMPORTANCE OF THESE RECOMMENDATIONS. AFTER A LENGTHY CONVERSATION, PT AGREED FOR PICC LINE WHICH WAS INSERTED TODAY AND PT TOLERATED. PT REFERRED TO [employer] / PT'S INSURANCE, HE NEEDS AUTH, WHICH WAS REQUESTED BY [facility]. PENDING AUTH FOR D/C. PT UNDERSTANDS THIS MAY NOT HAPPEN UNTIL THURSDAY. WILL CONTINUE TO F/U. Objective - Vital Signs/Intake and Output Vital Signs (last 24 hours): Temp Pulse Resp BP Pulse Ox 98.0 F 88 20 125/69 100 02/06/17 15:47 02/06/17 15:47 02/06/17 15:47 02/06/17 15:47 02/06/17 15:47 Intake and Output: 02/06/17 02/06/17 06:59 18:59 Intake Total 2300 1600 Output Total 3 Balance 2297 1600 - Medications Medications: Current Medications Acetaminophen (Tylenol 325mg Tab) 650 mg PO Q6 PRN PRN Reason: Fever >100.4 F Enoxaparin Sodium (Lovenox) 40 mg SC DAILY [facility] Last Admin: 02/06/17 10:41 Dose: 40 mg Famotidine (Pepcid) 20 mg PO BID [facility] Last Admin: 02/06/17 10:43 Dose: 20 mg Metronidazole (Flagyl) 500 mg in 100 mls @ 100 mls/hr IVPB Q6 [facility] Last Admin: 02/06/17 11:46 Dose: 100 mls/hr Piperacillin Sod/Tazobactam (Sod 3.375 gm/ Sodium Chloride) 100 mls @ 200 mls/ hr IVPB Q6 [facility] Last Admin: 02/06/17 11:00 Dose: 200 mls/hr Morphine Sulfate (Morphine) 4 mg IVP Q4 PRN PRN Reason: Pain, moderate (4-7) Last Admin: 02/05/17 18:10 Dose: 4 mg Ondansetron HCl (Zofran Inj) 4 mg IVP Q6 PRN PRN Reason: Nausea/Vomiting Tamsulosin HCl (Flomax) 0.4 mg PO DAILY [facility] Last Admin: 02/06/17 10:43 Dose: 0.4 mg - Labs Labs: 02/06/17 08:10 02/06/17 08:10 PT 16.5 SECONDS (9.7-12.2) H 02/05/17 08:32 INR 1.4 02/05/17 08:32 APTT 28 SECONDS (21-34) 02/05/17 08:32
[2017-02-06] MEDS: Morphine 4 MG/ML VIAL IVP PRN (17:14)
[2017-02-07] MEDS: Piperacillin/Tazobact 3.375 GM in Sodium Chloride 0.9% 100 ML IVPB SCH ×4 (01:00→18:00)
[2017-02-07] MEDS: metroNIDAZOLE IV 500 mg/100 ml 500 MG/100 ML BAG IVPB SCH ×4 (05:05→17:47)
[2017-02-07 07:08] LABS: MEAN CELL VOLUME 82.1 fL (80.0-94.0); MEAN CORPUSCULAR HEMOGLOBIN 27.4 pg (27.0-31.0); MEAN CORPUSCULAR HGB CONC 33.4 g/dL (33.0-37.0); MEAN PLATELET VOLUME 7.4 fL (7.2-11.7); RED CELL DISTRIBUTION WIDTH 13.7 % (11.5-14.5); WHITE BLOOD COUNT 11.1 K/uL (4.8-10.8)
[2017-02-07 07:52] LABS: CHLORIDE 96 mmol/L (98-107); POTASSIUM 3.8 mmol/L (3.6-5.2); SODIUM 134 mmol/L (132-148)
[2017-02-07 07:55] LABS: BLOOD UREA NITROGEN 6 mg/dL (9-20); CALCIUM 8.6 mg/dl (8.6-10.4); CARBON DIOXIDE 25 mmol/L (22-30); GFR AFRICAN-AMERICAN > 60; GLUCOSE,RANDOM 85 mg/dL (75-110)
[2017-02-07] MEDS: Enoxaparin 40 mg Syringe SC SCH (10:12)
--- NOTE | 2017-02-07 11:32 | CP.PCM.PN ---
Subjective - Date & Time of Evaluation Date of Evaluation: 02/07/17 Time of Evaluation: 08:20 - Subjective Subjective: clinically same Objective - Vital Signs/Intake and Output Vital Signs (last 24 hours): Temp Pulse Resp BP Pulse Ox 97.7 F 84 20 111/69 100 02/07/17 08:42 02/07/17 08:42 02/07/17 08:42 02/07/17 08:42 02/07/17 08:42 Intake and Output: 02/07/17 02/07/17 06:59 18:59 Intake Total 2200 Output Total 1400 Balance 800 - Medications Medications: Current Medications Acetaminophen (Tylenol 325mg Tab) 650 mg PO Q6 PRN PRN Reason: Fever >100.4 F Enoxaparin Sodium (Lovenox) 40 mg SC DAILY [facility] Last Admin: 02/07/17 10:12 Dose: 40 mg Famotidine (Pepcid) 20 mg PO BID [facility] Last Admin: 02/07/17 10:12 Dose: 20 mg Metronidazole (Flagyl) 500 mg in 100 mls @ 100 mls/hr IVPB Q6 [facility] Last Admin: 02/07/17 05:05 Dose: 100 mls/hr Piperacillin Sod/Tazobactam (Sod 3.375 gm/ Sodium Chloride) 100 mls @ 200 mls/ hr IVPB Q6 [facility] Last Admin: 02/07/17 06:30 Dose: 200 mls/hr Morphine Sulfate (Morphine) 4 mg IVP Q4 PRN PRN Reason: Pain, moderate (4-7) Last Admin: 02/06/17 17:14 Dose: 4 mg Ondansetron HCl (Zofran Inj) 4 mg IVP Q6 PRN PRN Reason: Nausea/Vomiting Tamsulosin HCl (Flomax) 0.4 mg PO DAILY [facility] Last Admin: 02/07/17 10:12 Dose: 0.4 mg - Labs Labs: 02/07/17 06:59 02/07/17 06:59 PT 16.5 SECONDS (9.7-12.2) H 02/05/17 08:32 INR 1.4 02/05/17 08:32 APTT 28 SECONDS (21-34) 02/05/17 08:32 - Constitutional Appears: Well - Head Exam Head Exam: ATRAUMATIC, NORMAL INSPECTION, NORMOCEPHALIC - Eye Exam Eye Exam: EOMI, Normal appearance, PERRL Pupil Exam: NORMAL ACCOMODATION, PERRL - ENT Exam ENT Exam: Mucous Membranes Moist, Normal Exam - Neck Exam Neck Exam: Full ROM, Normal Inspection. absent: Lymphadenopathy - Respiratory Exam Respiratory Exam: Decreased Breath Sounds - Cardiovascular Exam Cardiovascular Exam: REGULAR RHYTHM, +S1, +S2 - GI/Abdominal Exam GI & Abdominal Exam: Soft, Diminished Bowel Sounds - Rectal Exam Rectal Exam: Deferred Assessment and Plan (1) Acute appendicitis with appendiceal abscess Status: Acute (2) Inguinal hernia, incarcerated Status: Acute - Assessment and Plan (Free Text) Plan: Patient hemodynamically stable Pain decreased Leukocytosis trending down Zosyn Flagyl Lovenox Morphine Wound care
--- NOTE | 2017-02-07 17:59 | CP.PCM.PN ---
Subjective - Date & Time of Evaluation Date of Evaluation: 02/07/17 Time of Evaluation: 17:52 - Subjective Subjective: PT SEEN THIS AFTERNOON. C/O PAIN AND "BUMP" TO RIGHT LOWER ABD. STATES HIS PAIN STARTED THIS MORNING AD NOTIFIED THE NURSE. INCUBATOR TENDER WAS NOT NOTIFIED OF THIS PAIN UNTIL SAW PT DURING ROUNDS. ON EXAM PT HAS + TENDERNESS ON SHALLOW PALPATION TO RLQ; STILL HAS DRESSING ON FROM IR DRAINAGE; + PALPABLE AND VISIBLE SOFT MASS TO THE RLQ EXTENDING TOWARDS TO PUBIS; NO BLEEDING OR DRAINAGE. PT DENIES PERTINENT H/O TO INCUBATOR TENDER BUT PER RN TIFFANIE HE HAS H/O INGUINAL HERNIA. I DISCUSSED FINDING WITH DR. Ruby WRIGHT AND CT ABD PEL W/ IV CONTRAST ORDERED TO R/O RT INGUINAL HERNIA ?STRANGULATION VERSUS HEMATOMA POST-SEPTIC APPENDIX DRAINAGE. ALL LABS REVIEWED. SURGERY TO RE-EVAL PT FOR CURRENT C/O. RECOMMENDATIONS APPRECIATED IF ANY. CONTINUE IV ABX PER ID. PICC IN PLACE. PENDING 7/30 AM LABS. PLAN FOR [facility] FOR IV ABX THURSDAY, ONCE RECEIVES AUTH FROM INSURANCE. ALL DISCUSSED WITH PT. AGREES WITH PLAN. INCUBATOR TENDER WILL F/U ON THURSDAY. ANY WEEKEND ISSUES TO BE FOLLOWED BY DR. Ruby WRIGHT. Objective - Vital Signs/Intake and Output Vital Signs (last 24 hours): Temp Pulse Resp BP Pulse Ox 97.7 F 84 20 111/69 100 02/07/17 08:42 02/07/17 08:42 02/07/17 08:42 02/07/17 08:42 02/07/17 08:42 Intake and Output: 02/07/17 02/07/17 06:59 18:59 Intake Total 2200 1400 Output Total 1400 1500 Balance 800 -100 - Medications Medications: Current Medications Acetaminophen (Tylenol 325mg Tab) 650 mg PO Q6 PRN PRN Reason: Fever >100.4 F Enoxaparin Sodium (Lovenox) 40 mg SC DAILY [facility] Last Admin: 02/07/17 10:12 Dose: 40 mg Famotidine (Pepcid) 20 mg PO BID [facility] Last Admin: 02/07/17 17:46 Dose: 20 mg Metronidazole (Flagyl) 500 mg in 100 mls @ 100 mls/hr IVPB Q6 [facility] Last Admin: 02/07/17 17:47 Dose: 100 mls/hr Piperacillin Sod/Tazobactam (Sod 3.375 gm/ Sodium Chloride) 100 mls @ 200 mls/ hr IVPB Q6 [facility] Last Admin: 02/07/17 11:46 Dose: 200 mls/hr Morphine Sulfate (Morphine) 4 mg IVP Q4 PRN PRN Reason: Pain, moderate (4-7) Last Admin: 02/06/17 17:14 Dose: 4 mg Ondansetron HCl (Zofran Inj) 4 mg IVP Q6 PRN PRN Reason: Nausea/Vomiting Tamsulosin HCl (Flomax) 0.4 mg PO DAILY [facility] Last Admin: 02/07/17 10:12 Dose: 0.4 mg - Labs Labs: 02/07/17 06:59 02/07/17 06:59 PT 16.5 SECONDS (9.7-12.2) H 02/05/17 08:32 INR 1.4 02/05/17 08:32 APTT 28 SECONDS (21-34) 02/05/17 08:32
[2017-02-07] MEDS ORDERED: Iodixanol 320 MG/ML 100 ML BOTTLE IV ONE (18:15)
[2017-02-08] MEDS: Piperacillin/Tazobact 3.375 GM in Sodium Chloride 0.9% 100 ML IVPB SCH ×4 (01:00→18:42)
[2017-02-08] MEDS: Morphine 4 MG/ML VIAL IVP PRN (01:15)
[2017-02-08] MEDS: metroNIDAZOLE IV 500 mg/100 ml 500 MG/100 ML BAG IVPB SCH ×4 (05:00→17:29)
[2017-02-08 07:09] LABS: HEMATOCRIT 36.1 % (35.0-51.0); MEAN CELL VOLUME 82.6 fL (80.0-94.0); MEAN CORPUSCULAR HEMOGLOBIN 27.6 pg (27.0-31.0); MEAN CORPUSCULAR HGB CONC 33.4 g/dL (33.0-37.0); MEAN PLATELET VOLUME 7.5 fL (7.2-11.7); RED CELL DISTRIBUTION WIDTH 13.8 % (11.5-14.5); WHITE BLOOD COUNT 10.3 K/uL (4.8-10.8)
[2017-02-08 07:21] LABS: CHLORIDE 96 mmol/L (98-107); POTASSIUM 3.9 mmol/L (3.6-5.2); SODIUM 134 mmol/L (132-148)
[2017-02-08 07:24] LABS: BLOOD UREA NITROGEN 6 mg/dL (9-20); CARBON DIOXIDE 24 mmol/L (22-30); GFR AFRICAN-AMERICAN > 60; GLUCOSE,RANDOM 92 mg/dL (75-110)
[2017-02-08 07:25] LABS: CALCIUM 9.2 mg/dl (8.6-10.4)
[2017-02-08] MEDS: Enoxaparin 40 mg Syringe SC SCH (09:21)
--- NOTE | 2017-02-08 09:42 | CT ---
PROCEDURE: CT Abdomen and Pelvis with contrast HISTORY: RT INGUINAL HERNIA VS HEMATOMA POST IR DRAINAGE OF COMPARISON: 02/02/2017. TECHNIQUE: Contrast dose: 100 mL Visipaque 320 Radiation dose: Total exam DLP = 241.77 mGy-cm. This CT exam was performed using one or more of the following dose reduction techniques: Automated exposure control, adjustment of the mA and/or kV according to patient size, and/or use of iterative reconstruction technique. FINDINGS: LOWER THORAX: The lung bases are clear. LIVER: There is diffuse fatty infiltration in the liver. No gross lesion or ductal dilatation. GALLBLADDER AND BILE DUCTS: The gallbladder is contracted. PANCREAS: Normal in size with homogeneous enhancement. No gross lesion or ductal dilatation. SPLEEN: The spleen is normal in appearance. ADRENALS: Both adrenal glands are normal in size without discrete nodule. KIDNEYS AND URETERS: Both kidneys are normal in size and there is homogeneous enhancement without hydronephrosis or focal mass. VASCULATURE: No aortic aneurysm. BOWEL: The bowel loops are normal in caliber. No evidence of bowel obstruction APPENDIX: A fluid-filled tubular structure in the right lower quadrant which may a represent distended fluid-filled appendix. No inflammatory changes in the right lower quadrant. There is a 3.4 x 2.2 cm collection with central foci of air and rim enhancement in the right lower quadrant. PERITONEUM: No free fluid. No free air. LYMPH NODES: No enlarged lymph nodes. BLADDER: Grossly normal in appearance. REPRODUCTIVE: There is a large right hydrocele. There is mild enlargement of the prostate gland. BONES: No acute fracture. OTHER FINDINGS: There is a 5.3 x 4.5 cm multilocular peripherally enhancing fluid collection with multiple central and peripheral foci of air in the right groin with reactive thickening and edema in the right lower lateral abdominal wall, increased in size since the prior examination. IMPRESSION: Findings are most compatible with a 3.4 x 2.2 cm abscess in the right lower quadrant with reactive edema and thickening of the right lower lateral abdominal wall. The abscess is contiguous with a 5.3 x 4.5 cm abscess in the right groin increased in size since the prior examination. A preliminary report was provided by [facility] it!.
--- NOTE | 2017-02-08 12:21 | CP.PCM.PN ---
Subjective - Date & Time of Evaluation Date of Evaluation: 02/08/17 Time of Evaluation: 08:20 - Subjective Subjective: clinically same Objective - Vital Signs/Intake and Output Vital Signs (last 24 hours): Temp Pulse Resp BP Pulse Ox 98.6 F 84 20 98/60 L 98 02/08/17 06:00 02/07/17 23:32 02/07/17 23:32 02/07/17 23:32 02/07/17 23:32 Intake and Output: 02/08/17 02/08/17 06:59 18:59 Intake Total 720 Output Total 1200 Balance -480 - Medications Medications: Current Medications Acetaminophen (Tylenol 325mg Tab) 650 mg PO Q6 PRN PRN Reason: Fever >100.4 F Enoxaparin Sodium (Lovenox) 40 mg SC DAILY [facility] Last Admin: 02/08/17 09:21 Dose: 40 mg Famotidine (Pepcid) 20 mg PO BID [facility] Last Admin: 02/08/17 09:21 Dose: 20 mg Metronidazole (Flagyl) 500 mg in 100 mls @ 100 mls/hr IVPB Q6 [facility] Last Admin: 02/08/17 05:00 Dose: 100 mls/hr Piperacillin Sod/Tazobactam (Sod 3.375 gm/ Sodium Chloride) 100 mls @ 200 mls/ hr IVPB Q6 [facility] Last Admin: 02/08/17 11:15 Dose: 200 mls/hr Morphine Sulfate (Morphine) 4 mg IVP Q4 PRN PRN Reason: Pain, moderate (4-7) Last Admin: 02/08/17 01:15 Dose: 4 mg Ondansetron HCl (Zofran Inj) 4 mg IVP Q6 PRN PRN Reason: Nausea/Vomiting Tamsulosin HCl (Flomax) 0.4 mg PO DAILY [facility] Last Admin: 02/08/17 09:21 Dose: 0.4 mg - Labs Labs: 02/08/17 06:59 02/08/17 06:59 PT 16.5 SECONDS (9.7-12.2) H 02/05/17 08:32 INR 1.4 02/05/17 08:32 APTT 28 SECONDS (21-34) 02/05/17 08:32 - Constitutional Appears: Well - Head Exam Head Exam: ATRAUMATIC, NORMAL INSPECTION, NORMOCEPHALIC - Eye Exam Eye Exam: EOMI, Normal appearance, PERRL Pupil Exam: NORMAL ACCOMODATION, PERRL - ENT Exam ENT Exam: Mucous Membranes Moist, Normal Exam - Neck Exam Neck Exam: Full ROM, Normal Inspection. absent: Lymphadenopathy - Respiratory Exam Respiratory Exam: Decreased Breath Sounds - Cardiovascular Exam Cardiovascular Exam: REGULAR RHYTHM, +S1, +S2 - GI/Abdominal Exam GI & Abdominal Exam: Soft, Diminished Bowel Sounds - Rectal Exam Rectal Exam: Deferred Assessment and Plan (1) Acute appendicitis with appendiceal abscess Status: Acute (2) Inguinal hernia, incarcerated Status: Acute - Assessment and Plan (Free Text) Plan: Patient seen and examined at bedside aebrile Labs reviewed Surgeon on board ID on board Continue antibiotics Morphine Zofran Flomax Follow-up with labs
[2017-02-09] MEDS: metroNIDAZOLE IV 500 mg/100 ml 500 MG/100 ML BAG IVPB SCH ×3 (00:14→11:10)
[2017-02-09] MEDS: Piperacillin/Tazobact 3.375 GM in Sodium Chloride 0.9% 100 ML IVPB SCH ×4 (06:11→17:20)
[2017-02-09] MEDS ORDERED: Bupivacaine-Epi 0.25%-1:200,000 PF Inj ONE ×2 (07:36→08:22)
[2017-02-09] MEDS ORDERED: Lidocaine 1% Inj (20ml) ONE ×2 (07:36→08:22)
[2017-02-09] MEDS ORDERED: Propofol 10 mg/ml Inj (20 ML) ONE (07:57)
[2017-02-09] MEDS ORDERED: Midazolam 2 MG/2 ML VIAL ONE (07:58)
[2017-02-09] MEDS ORDERED: Lidocaine 2% Inj (20ml) ONE (08:22)
[2017-02-09] MEDS ORDERED: HYDROmorphone 0.5 mg/0.5 ml ISec IVP PRN ×2 (08:54→09:17)
--- NOTE | 2017-02-09 09:13 | PCM.SURG1 ---
Surgeon's Initial Post Op Note - Surgeon's Notes Surgeon: Dr. Dowd Design Project Manager: May Martinez, PGY2; Filipe Doshi, OMS3 Pre-Operative Diagnosis: perforated appendix with abscess in right inguinal canal Operative Findings: See full operative report Post-Operative Diagnosis: same Operation Performed: Incision and drainage of right inguinal abscess from perforated appendix, extensive debridement of necrotic tissue Specimen/Specimens Removed: wound culture x2, debrided necrotic tissue Estimated Blood Loss: EBL {In ML}: 5 Date of Surgery/Procedure: 02/09/17 Time of Surgery/Procedure: 08:30
[2017-02-09] MEDS ORDERED: Lactated Ringer's 1,000 ML IV ONE (10:27)
[2017-02-09 10:47] VITALS: RESP 20
--- NOTE | 2017-02-09 11:44 | CP.PCM.PN ---
Subjective - Date & Time of Evaluation Date of Evaluation: 02/09/17 Time of Evaluation: 11:44 - Subjective Subjective: PT SEEN AFTER OR. DRESSING TO RLQ INTACT AND PT COMFORTABLE. PT TO CONTINUE IV ABX EXACTLY RECOMMENDED BY ID. PENDING SURGICAL TEAM CLEARANCE FOR D/C TO REHAB TO COMPLETE ABX REGIMEN. PIPE ORGAN MECHANIC NOTIFIED DR. SANTOS OF PT STATUS. WILL CONTINUE TO FOLLOW. Objective - Vital Signs/Intake and Output Vital Signs (last 24 hours): Temp Pulse Resp BP Pulse Ox 97.5 F L 96 H 20 126/71 100 02/09/17 11:20 02/09/17 10:30 02/09/17 11:20 02/09/17 11:20 02/09/17 11:20 Intake and Output: 02/09/17 02/09/17 06:59 18:59 Intake Total 1000 Balance 1000 - Medications Medications: Current Medications Acetaminophen (Tylenol 325mg Tab) 650 mg PO Q6 PRN PRN Reason: Fever >100.4 F Enoxaparin Sodium (Lovenox) 40 mg SC DAILY [facility] Last Admin: 02/08/17 09:21 Dose: 40 mg Famotidine (Pepcid) 20 mg PO BID [facility] Last Admin: 02/09/17 10:25 Dose: Not Given Hydromorphone HCl (Dilaudid) 0.5 mg IVP Q15M PRN PRN Reason: Pain, severe (8-10) Piperacillin Sod/Tazobactam (Sod 3.375 gm/ Sodium Chloride) 100 mls @ 200 mls/ hr IVPB Q6 [facility] Last Admin: 02/09/17 11:11 Dose: Not Given Vancomycin HCl 1,000 mg/ (Sodium Chloride) 250 mls @ 166.6 mls/hr IVPB Q12H [facility] Morphine Sulfate (Morphine) 4 mg IVP Q4 PRN PRN Reason: Pain, moderate (4-7) Last Admin: 02/08/17 01:15 Dose: 4 mg Ondansetron HCl (Zofran Inj) 4 mg IVP Q6 PRN PRN Reason: Nausea/Vomiting Tamsulosin HCl (Flomax) 0.4 mg PO DAILY [facility] Last Admin: 02/09/17 09:38 Dose: Not Given - Labs Labs: 02/08/17 06:59 02/08/17 06:59 PT 16.5 SECONDS (9.7-12.2) H 02/05/17 08:32 INR 1.4 02/05/17 08:32 APTT 28 SECONDS (21-34) 02/05/17 08:32
[2017-02-09] MEDS: Vancomycin 1 gm/NS 200 ml 1 GM/200 ML BAG IVPB SCH ×2 (13:18→23:54)
--- NOTE | 2017-02-09 13:40 | US ---
PROCEDURE: Date of procedure: 02/04/2017 Procedure: 1. Superficial pelvic abscess drainage with ultrasound guidance, CPT 71410 Medications: Lidocaine 2 percent, patient was sedated by anesthesiologist along with physiologic monitoring HISTORY: Appendicitis with abscess. TECHNIQUE: Following informed consent procedure time-out, limited ultrasound performed of the right lower abdomen showed a complex collection measuring 4.4 x 2.9 centimeter above the iliac crest consistent with abscess seen on CT scan. After the patient abdomen was prepped and draped in the usual sterile fashion, the skin was anesthetized with 1 % lidocaine. A 5 [place] Loco2eh catheter was advanced under ultrasound guidance into the collection. 20 cubic centimeters of purulent drainage occurs aspirated. A dressing was applied. IMPRESSION: Ultrasound-guided aspiration of superficial pelvic abscess related to appendicitis.
--- NOTE | 2017-02-09 18:07 | CP.PCM.PN ---
Subjective - Date & Time of Evaluation Date of Evaluation: 02/09/17 Time of Evaluation: 08:00 - Subjective Subjective: clinically same Objective - Vital Signs/Intake and Output Vital Signs (last 24 hours): Temp Pulse Resp BP Pulse Ox 97.7 F 78 20 115/63 98 02/09/17 15:49 02/09/17 15:49 02/09/17 15:49 02/09/17 15:49 02/09/17 15:49 Intake and Output: 02/09/17 02/09/17 06:59 18:59 Intake Total 1000 Balance 1000 - Medications Medications: Current Medications Acetaminophen (Tylenol 325mg Tab) 650 mg PO Q6 PRN PRN Reason: Fever >100.4 F Enoxaparin Sodium (Lovenox) 40 mg SC DAILY [facility] Last Admin: 02/08/17 09:21 Dose: 40 mg Famotidine (Pepcid) 20 mg PO BID [facility] Last Admin: 02/09/17 17:20 Dose: 20 mg Hydromorphone HCl (Dilaudid) 0.5 mg IVP Q15M PRN PRN Reason: Pain, severe (8-10) Last Admin: 02/09/17 14:39 Dose: 0.5 mg Piperacillin Sod/Tazobactam (Sod 3.375 gm/ Sodium Chloride) 100 mls @ 200 mls/ hr IVPB Q6 [facility] Last Admin: 02/09/17 17:20 Dose: 200 mls/hr Vancomycin/Sodium Chloride (Vancocin) 1 gm in 200 mls @ 133.333 mls/hr IVPB Q12H [facility] Stop: 02/14/17 12:01 Last Admin: 02/09/17 13:18 Dose: 133.333 mls/hr Morphine Sulfate (Morphine) 4 mg IVP Q4 PRN PRN Reason: Pain, moderate (4-7) Last Admin: 02/08/17 01:15 Dose: 4 mg Ondansetron HCl (Zofran Inj) 4 mg IVP Q6 PRN PRN Reason: Nausea/Vomiting Tamsulosin HCl (Flomax) 0.4 mg PO DAILY [facility] Last Admin: 02/09/17 09:38 Dose: Not Given - Labs Labs: 02/08/17 06:59 02/08/17 06:59 PT 16.5 SECONDS (9.7-12.2) H 02/05/17 08:32 INR 1.4 02/05/17 08:32 APTT 28 SECONDS (21-34) 02/05/17 08:32 - Constitutional Appears: Well - Head Exam Head Exam: ATRAUMATIC, NORMAL INSPECTION, NORMOCEPHALIC - Eye Exam Eye Exam: EOMI, Normal appearance, PERRL Pupil Exam: NORMAL ACCOMODATION, PERRL - ENT Exam ENT Exam: Mucous Membranes Moist, Normal Exam - Neck Exam Neck Exam: Full ROM, Normal Inspection. absent: Lymphadenopathy - Respiratory Exam Respiratory Exam: Decreased Breath Sounds - Cardiovascular Exam Cardiovascular Exam: REGULAR RHYTHM, +S1, +S2 - GI/Abdominal Exam GI & Abdominal Exam: Soft, Diminished Bowel Sounds - Rectal Exam Rectal Exam: Deferred Assessment and Plan (1) Acute appendicitis with appendiceal abscess Status: Acute (2) Inguinal hernia, incarcerated Status: Acute - Assessment and Plan (Free Text) Plan: Patient is growing a uncommon organism sensitive to vancomycin and Rocephin ID consult Surgical not seen May need to go to the [facility] for 4 weeks of IV antibiotic As ordered Monitor for the fever and vital signs
[2017-02-09 21:53] LABS: BASO # 0.1 K/uL (0.0-0.2); BASO % 1.1 % (0.0-2.0); EOS # 0.3 K/uL (0.0-0.7); EOS % 4.1 % (0.0-4.0); HEMATOCRIT 35.3 % (35.0-51.0); LYMPH # 2.2 K/uL (1.0-4.3); LYMPH % 28.1 % (20.0-40.0); MEAN CELL VOLUME 82.9 fL (80.0-94.0); MEAN CORPUSCULAR HEMOGLOBIN 27.4 pg (27.0-31.0); MEAN PLATELET VOLUME 7.1 fL (7.2-11.7); MONO # 0.9 K/uL (0.0-0.8); MONO % 11.9 % (0.0-10.0); RED CELL DISTRIBUTION WIDTH 14.2 % (11.5-14.5)
[2017-02-09 21:56] LABS: CHLORIDE 96 mmol/L (98-107); POTASSIUM 3.7 mmol/L (3.6-5.2); SODIUM 135 mmol/L (132-148)
[2017-02-09 21:58] LABS: GFR AFRICAN-AMERICAN > 60
[2017-02-09 21:59] LABS: ALB/GLOB RATIO 0.9 (1.0-2.1); ALKALINE PHOSPHATASE 59 U/L (38-126); ALT/SGPT 40 U/L (21-72); AST/SGOT 26 U/L (17-59); BILIRUBIN,TOTAL 0.4 mg/dL (0.2-1.3); BLOOD UREA NITROGEN 8 mg/dL (9-20); CARBON DIOXIDE 26 mmol/L (22-30); GLUCOSE,RANDOM 130 mg/dL (75-110); TOTAL PROTEIN 6.5 g/dL (6.3-8.3)
[2017-02-09 22:00] LABS: CALCIUM 8.4 mg/dl (8.6-10.4)
[2017-02-09] MEDS: Morphine 4 MG/ML VIAL IVP PRN (23:58)
[2017-02-10 07:26] LABS: BASO # 0.1 K/uL (0.0-0.2); BASO % 0.9 % (0.0-2.0); EOS # 0.4 K/uL (0.0-0.7); EOS % 4.4 % (0.0-4.0); HEMATOCRIT 35.2 % (35.0-51.0); LYMPH # 2.2 K/uL (1.0-4.3); LYMPH % 26.7 % (20.0-40.0); MEAN CELL VOLUME 82.8 fL (80.0-94.0); MEAN CORPUSCULAR HEMOGLOBIN 27.2 pg (27.0-31.0); MEAN CORPUSCULAR HGB CONC 32.9 g/dL (33.0-37.0); MEAN PLATELET VOLUME 7.5 fL (7.2-11.7); MONO # 0.9 K/uL (0.0-0.8); MONO % 10.8 % (0.0-10.0); NRBC % 0.2 % (0.0-2.0); RED CELL DISTRIBUTION WIDTH 13.9 % (11.5-14.5); WHITE BLOOD COUNT 8.3 K/uL (4.8-10.8)
[2017-02-10 08:04] LABS: CHLORIDE 97 mmol/L (98-107)
[2017-02-10 08:05] LABS: POTASSIUM 4.1 mmol/L (3.6-5.2); SODIUM 136 mmol/L (132-148)
[2017-02-10 08:07] LABS: GFR AFRICAN-AMERICAN > 60
[2017-02-10 08:08] LABS: BLOOD UREA NITROGEN 7 mg/dL (9-20); CALCIUM 8.5 mg/dl (8.6-10.4); CARBON DIOXIDE 23 mmol/L (22-30); GLUCOSE,RANDOM 83 mg/dL (75-110)
--- NOTE | 2017-02-10 09:23 | CP.PCM.PN ---
Subjective - Date & Time of Evaluation Date of Evaluation: 02/10/17 Time of Evaluation: 07:30 - Subjective Subjective: General Surgery- Dr. Dowd Pt S&E at bedside this AM. No acute events overnight. pain is manageable. tolerating current diet. Denies F/C CP/SOB N/V. +Flatus Right groin packing changed at bedside this AM. no induration or erythema Objective - Vital Signs/Intake and Output Vital Signs (last 24 hours): Temp Pulse Resp BP Pulse Ox 98.0 F 83 20 95/62 L 98 02/10/17 07:42 02/10/17 07:42 02/10/17 07:42 02/10/17 07:42 02/10/17 07:42 Intake and Output: 02/10/17 02/10/17 06:59 18:59 Intake Total 380 Balance 380 - Medications Medications: Current Medications Acetaminophen (Tylenol 325mg Tab) 650 mg PO Q6 PRN PRN Reason: Fever >100.4 F Enoxaparin Sodium (Lovenox) 40 mg SC DAILY [facility] Last Admin: 02/08/17 09:21 Dose: 40 mg Famotidine (Pepcid) 20 mg PO BID [facility] Last Admin: 02/10/17 09:17 Dose: 20 mg Hydromorphone HCl (Dilaudid) 0.5 mg IVP Q15M PRN PRN Reason: Pain, severe (8-10) Last Admin: 02/09/17 14:39 Dose: 0.5 mg Vancomycin/Sodium Chloride (Vancocin) 1 gm in 200 mls @ 133.333 mls/hr IVPB Q12H [facility] Stop: 02/14/17 12:01 Last Admin: 02/09/17 23:54 Dose: 133.333 mls/hr Ceftriaxone Sodium 1 gm/ (Sodium Chloride) 100 mls @ 100 mls/hr IVPB Q12H [facility] Last Admin: 02/10/17 09:16 Dose: 100 mls/hr Morphine Sulfate (Morphine) 4 mg IVP Q4 PRN PRN Reason: Pain, moderate (4-7) Last Admin: 02/09/17 23:58 Dose: 4 mg Ondansetron HCl (Zofran Inj) 4 mg IVP Q6 PRN PRN Reason: Nausea/Vomiting Tamsulosin HCl (Flomax) 0.4 mg PO DAILY [facility] Last Admin: 02/10/17 09:17 Dose: 0.4 mg - Labs Labs: 02/10/17 07:08 02/10/17 07:08 PT 16.5 SECONDS (9.7-12.2) H 02/05/17 08:32 INR 1.4 02/05/17 08:32 APTT 28 SECONDS (21-34) 02/05/17 08:32 - Constitutional Appears: No Acute Distress - Eye Exam Eye Exam: EOMI - ENT Exam ENT Exam: Mucous Membranes Dry - Respiratory Exam Respiratory Exam: NORMAL BREATHING PATTERN. absent: Accessory Muscle Use - Cardiovascular Exam Cardiovascular Exam: REGULAR RHYTHM - GI/Abdominal Exam GI & Abdominal Exam: Soft, Normal Bowel Sounds. absent: Distended, Organomegaly Additional comments: appropriately tender around incision - Neurological Exam Neurological Exam: Alert, Awake, Oriented x3 - Skin Skin Exam: Normal Color, Warm Assessment and Plan - Assessment and Plan (Free Text) Assessment: 56M POD1 Incision and Drainage of Right groin Plan: - continue daily packing change - pre-op would culture grew kocuria Kirstinae, intraop NGTD - f/u wound culture - IC - OOB - Further recs per Dr. Dowd will discuss with Dr. Noemí Fields PGY1
[2017-02-10] MEDS: Enoxaparin 40 mg Syringe SC SCH (12:15)
[2017-02-10] MEDS: Vancomycin 1 gm/NS 200 ml 1 GM/200 ML BAG IVPB SCH (12:16)
--- NOTE | 2017-02-10 16:42 | CP.PCM.PN ---
Subjective - Date & Time of Evaluation Date of Evaluation: 02/10/17 Time of Evaluation: 08:00 - Subjective Subjective: clinically same Objective - Vital Signs/Intake and Output Vital Signs (last 24 hours): Temp Pulse Resp BP Pulse Ox 98.0 F 83 20 95/62 L 98 02/10/17 07:42 02/10/17 07:42 02/10/17 07:42 02/10/17 07:42 02/10/17 07:42 Intake and Output: 02/10/17 02/10/17 06:59 18:59 Intake Total 380 Balance 380 - Medications Medications: Current Medications Acetaminophen (Tylenol 325mg Tab) 650 mg PO Q6 PRN PRN Reason: Fever >100.4 F Enoxaparin Sodium (Lovenox) 40 mg SC DAILY [facility] Last Admin: 02/10/17 12:15 Dose: 40 mg Famotidine (Pepcid) 20 mg PO BID [facility] Last Admin: 02/10/17 09:17 Dose: 20 mg Hydromorphone HCl (Dilaudid) 0.5 mg IVP Q15M PRN PRN Reason: Pain, severe (8-10) Last Admin: 02/09/17 14:39 Dose: 0.5 mg Vancomycin/Sodium Chloride (Vancocin) 1 gm in 200 mls @ 133.333 mls/hr IVPB Q12H [facility] Stop: 02/14/17 12:01 Last Admin: 02/10/17 12:16 Dose: 133.333 mls/hr Ceftriaxone Sodium 1 gm/ (Sodium Chloride) 100 mls @ 100 mls/hr IVPB Q12H [facility] Last Admin: 02/10/17 09:16 Dose: 100 mls/hr Morphine Sulfate (Morphine) 4 mg IVP Q4 PRN PRN Reason: Pain, moderate (4-7) Last Admin: 02/09/17 23:58 Dose: 4 mg Ondansetron HCl (Zofran Inj) 4 mg IVP Q6 PRN PRN Reason: Nausea/Vomiting Tamsulosin HCl (Flomax) 0.4 mg PO DAILY [facility] Last Admin: 02/10/17 09:17 Dose: 0.4 mg - Labs Labs: 02/10/17 07:08 02/10/17 07:08 PT 16.5 SECONDS (9.7-12.2) H 02/05/17 08:32 INR 1.4 02/05/17 08:32 APTT 28 SECONDS (21-34) 02/05/17 08:32 - Constitutional Appears: Well - Head Exam Head Exam: ATRAUMATIC, NORMAL INSPECTION, NORMOCEPHALIC - Eye Exam Eye Exam: EOMI, Normal appearance, PERRL Pupil Exam: NORMAL ACCOMODATION, PERRL - ENT Exam ENT Exam: Mucous Membranes Moist, Normal Exam - Neck Exam Neck Exam: Full ROM, Normal Inspection. absent: Lymphadenopathy - Respiratory Exam Respiratory Exam: Decreased Breath Sounds - Cardiovascular Exam Cardiovascular Exam: REGULAR RHYTHM, +S1, +S2 - GI/Abdominal Exam GI & Abdominal Exam: Soft, Diminished Bowel Sounds - Rectal Exam Rectal Exam: Deferred Assessment and Plan (1) Acute appendicitis with appendiceal abscess Status: Acute (2) Inguinal hernia, incarcerated Status: Acute - Assessment and Plan (Free Text) Plan: Patient said he is growing a uncommon bug IV Rocephin ID consult follow-up seen the note by Dr. Edmondson but the patient has a right-sided sterile dressing present patient pain is better needs an IV antibiotic for 48 weeks also patient is on IV vancomycin and Vanco level
[2017-02-11] MEDS: Vancomycin 1 gm/NS 200 ml 1 GM/200 ML BAG IVPB SCH ×2 (00:14→11:30)
--- NOTE | 2017-02-11 02:56 | OP ---
PROCEDURE DATE: 02/09/2017 PREOPERATIVE DIAGNOSES: 1. Perforated appendicitis. 2. Right inguinal abscess. POSTOPERATIVE DIAGNOSES: 1. Perforated appendicitis. 2. Right inguinal abscess. PROCEDURE DONE: 1. Incision and drainage of right inguinal abscess. 2. Excisional debridement of abscess cavity and the wound. SURGEON: Nahun Dowd MD HOOP DRIVING MACHINE OPERATOR HELPER: May Martinez, PGY-2 resident. TYPE OF ANESTHESIA: General endotracheal tube anesthesia. ESTIMATED BLOOD LOSS: Around 10 mL. DRAIN: None. PATHOLOGY: 1. The pus was sent for culture and sensitivity. 2. Debrided tissue was sent for the permanent pathology. COMPLICATIONS: None. INTRAOPERATIVE FINDINGS: The patient had a right inguinal area abscess and there was no visualization of the appendix or intraabdominal content. On intraoperative steps, this is a 56-year-old male who was initially diagnosed with perforated appendicitis. The patient had a perforation very close to right inguinal area and patient also had abscess in the right inguinal region. Initially, the patient had IR-guided aspiration. The patient continue to have abscess without any improvement and the patient was consented for incision and drainage of the abscess and possible appendectomy if appendix or intestinal content is visualized. DESCRIPTION OF PROCEDURE: The patient was brought to the OR, placed supine on the operating table. After induction of the anesthesia, the abdomen was prepped and draped in the usual sterile fashion. The incision was made on top of the right inguinal region. Approximately 20 mL of pus was drained. The cavity appeared to be only in the inguinal canal and no visualization of the appendix or intestinal content present. Now, the abscess cavity was debrided. All the necrotic tissue was taken out. Hemostasis was achieved. The cavity was packed with Iodoform packing and a dry sterile dressing was applied. The patient tolerated the procedure well. Count of the instrument was correct. There was no apparent complication. Nahun Dowd MD
[2017-02-11 08:12] LABS: BASO % 0.2 % (0.0-2.0); EOS # 0.3 K/uL (0.0-0.7); EOS % 5.1 % (0.0-4.0); HEMATOCRIT 38.6 % (35.0-51.0); LYMPH # 1.8 K/uL (1.0-4.3); LYMPH % 27.5 % (20.0-40.0); MEAN CELL VOLUME 82.8 fL (80.0-94.0); MEAN CORPUSCULAR HEMOGLOBIN 28.2 pg (27.0-31.0); MEAN CORPUSCULAR HGB CONC 34.1 g/dL (33.0-37.0); MEAN PLATELET VOLUME 7.3 fL (7.2-11.7); MONO # 0.5 K/uL (0.0-0.8); MONO % 7.9 % (0.0-10.0); NRBC % 0.1 % (0.0-2.0); RED CELL DISTRIBUTION WIDTH 14.5 % (11.5-14.5); WHITE BLOOD COUNT 6.4 K/uL (4.8-10.8)
--- NOTE | 2017-02-11 08:17 | CP.PCM.PN ---
<John Story - Last Filed: 02/11/17 11:25> Subjective - Date & Time of Evaluation Date of Evaluation: 02/11/17 Time of Evaluation: 07:00 - Subjective Subjective: Patient seen and examined this morning, reports some serosanguinous drainage at I&D site over night. No acute events. Patient is tolerating diet and having normal BM. Denies fever/chills. Wound re-packed and dressed, c/d/i. Objective - Vital Signs/Intake and Output Vital Signs (last 24 hours): Temp Pulse Resp BP Pulse Ox 98.1 F 101 H 20 99/62 L 98 02/11/17 07:59 02/11/17 07:59 02/11/17 07:59 02/11/17 07:59 02/11/17 07:59 Intake and Output: 02/11/17 02/11/17 06:59 18:59 Intake Total 450 Balance 450 - Medications Medications: Current Medications Acetaminophen (Tylenol 325mg Tab) 650 mg PO Q6 PRN PRN Reason: Fever >100.4 F Enoxaparin Sodium (Lovenox) 40 mg SC DAILY [facility] Last Admin: 02/10/17 12:15 Dose: 40 mg Famotidine (Pepcid) 20 mg PO BID [facility] Last Admin: 02/10/17 18:03 Dose: 20 mg Hydromorphone HCl (Dilaudid) 0.5 mg IVP Q15M PRN PRN Reason: Pain, severe (8-10) Last Admin: 02/09/17 14:39 Dose: 0.5 mg Vancomycin/Sodium Chloride (Vancocin) 1 gm in 200 mls @ 133.333 mls/hr IVPB Q12H [facility] Stop: 02/14/17 12:01 Last Admin: 02/11/17 00:14 Dose: 133.333 mls/hr Ceftriaxone Sodium 1 gm/ (Sodium Chloride) 100 mls @ 100 mls/hr IVPB Q12H [facility] Last Admin: 02/10/17 21:30 Dose: 100 mls/hr Morphine Sulfate (Morphine) 4 mg IVP Q4 PRN PRN Reason: Pain, moderate (4-7) Last Admin: 02/09/17 23:58 Dose: 4 mg Ondansetron HCl (Zofran Inj) 4 mg IVP Q6 PRN PRN Reason: Nausea/Vomiting Tamsulosin HCl (Flomax) 0.4 mg PO DAILY [facility] Last Admin: 02/10/17 09:17 Dose: 0.4 mg - Labs Labs: 02/10/17 07:08 02/10/17 07:08 PT 16.5 SECONDS (9.7-12.2) H 02/05/17 08:32 INR 1.4 02/05/17 08:32 APTT 28 SECONDS (21-34) 02/05/17 08:32 - Constitutional Appears: No Acute Distress - Head Exam Head Exam: NORMOCEPHALIC - Eye Exam Eye Exam: Normal appearance - ENT Exam ENT Exam: Mucous Membranes Moist - Respiratory Exam Respiratory Exam: NORMAL BREATHING PATTERN - Cardiovascular Exam Cardiovascular Exam: +S1, +S2 - GI/Abdominal Exam GI & Abdominal Exam: Soft Additional comments: right groin with no active purulent drainage Wound was repacked Wound appears clean/dry/intact Granulation tissue noted throughout wound - Neurological Exam Neurological Exam: Alert, Awake, Oriented x3 - Psychiatric Exam Psychiatric exam: Normal Mood - Skin Skin Exam: Dry, Intact, Warm Assessment and Plan - Assessment and Plan (Free Text) Assessment: 56M POD2 Incision and Drainage of Right groin -Regular diet - continue daily packing changes - f/u wound cultures - OOB - Further recs per Dr. Noemí Story PGY-2 <Nahun Dowd B - Last Filed: 02/11/17 11:44> Objective - Vital Signs/Intake and Output Vital Signs (last 24 hours): Temp Pulse Resp BP Pulse Ox 98.1 F 101 H 20 99/62 L 98 02/11/17 07:59 02/11/17 07:59 02/11/17 07:59 02/11/17 07:59 02/11/17 07:59 Intake and Output: 02/11/17 02/11/17 06:59 18:59 Intake Total 450 350 Output Total 1 Balance 450 349 - Medications Medications: Current Medications Acetaminophen (Tylenol 325mg Tab) 975 mg PO Q6 PRN PRN Reason: Pain, moderate (4-7) Enoxaparin Sodium (Lovenox) 40 mg SC DAILY [facility] Last Admin: 02/11/17 11:31 Dose: 40 mg Famotidine (Pepcid) 20 mg PO BID [facility] Last Admin: 02/11/17 11:31 Dose: 20 mg Vancomycin/Sodium Chloride (Vancocin) 1 gm in 200 mls @ 133.333 mls/hr IVPB Q12H [facility] Stop: 02/14/17 12:01 Last Admin: 02/11/17 11:30 Dose: 133.333 mls/hr Ceftriaxone Sodium 1 gm/ (Sodium Chloride) 100 mls @ 100 mls/hr IVPB Q12H [facility] Last Admin: 02/11/17 08:40 Dose: 100 mls/hr Ketorolac Tromethamine (Toradol) 10 mg PO Q6 PRN PRN Reason: Pain, severe (8-10) Ondansetron HCl (Zofran Inj) 4 mg IVP Q6 PRN PRN Reason: Nausea/Vomiting Tamsulosin HCl (Flomax) 0.4 mg PO DAILY [facility] Last Admin: 02/11/17 11:30 Dose: 0.4 mg - Labs Labs: 02/11/17 08:00 02/10/17 07:08 PT 16.5 SECONDS (9.7-12.2) H 02/05/17 08:32 INR 1.4 02/05/17 08:32 APTT 28 SECONDS (21-34) 02/05/17 08:32 Attending/Attestation - Attestation I have personally seen and examined this patient.: Yes I have fully participated in the care of the patient.: Yes I have reviewed all pertinent clinical information, including history, physical exam and plan: Yes Notes (Text): 02/11/17 11:44 Pt was seen and examined at bedside on 02/11/17 Agree with above note and assessment
--- NOTE | 2017-02-11 10:58 | CP.PCM.PN ---
Subjective - Date & Time of Evaluation Date of Evaluation: 02/11/17 Time of Evaluation: 08:00 - Subjective Subjective: clinically same Objective - Vital Signs/Intake and Output Vital Signs (last 24 hours): Temp Pulse Resp BP Pulse Ox 98.1 F 101 H 20 99/62 L 98 02/11/17 07:59 02/11/17 07:59 02/11/17 07:59 02/11/17 07:59 02/11/17 07:59 Intake and Output: 02/11/17 02/11/17 06:59 18:59 Intake Total 450 350 Output Total 1 Balance 450 349 - Medications Medications: Current Medications Acetaminophen (Tylenol 325mg Tab) 975 mg PO Q6 PRN PRN Reason: Pain, moderate (4-7) Enoxaparin Sodium (Lovenox) 40 mg SC DAILY [facility] Last Admin: 02/10/17 12:15 Dose: 40 mg Famotidine (Pepcid) 20 mg PO BID [facility] Last Admin: 02/10/17 18:03 Dose: 20 mg Vancomycin/Sodium Chloride (Vancocin) 1 gm in 200 mls @ 133.333 mls/hr IVPB Q12H [facility] Stop: 02/14/17 12:01 Last Admin: 02/11/17 00:14 Dose: 133.333 mls/hr Ceftriaxone Sodium 1 gm/ (Sodium Chloride) 100 mls @ 100 mls/hr IVPB Q12H [facility] Last Admin: 02/11/17 08:40 Dose: 100 mls/hr Ketorolac Tromethamine (Toradol) 10 mg PO Q6 PRN PRN Reason: Pain, severe (8-10) Ondansetron HCl (Zofran Inj) 4 mg IVP Q6 PRN PRN Reason: Nausea/Vomiting Tamsulosin HCl (Flomax) 0.4 mg PO DAILY [facility] Last Admin: 02/10/17 09:17 Dose: 0.4 mg - Labs Labs: 02/11/17 08:00 02/10/17 07:08 PT 16.5 SECONDS (9.7-12.2) H 02/05/17 08:32 INR 1.4 02/05/17 08:32 APTT 28 SECONDS (21-34) 02/05/17 08:32 - Constitutional Appears: Well - Head Exam Head Exam: ATRAUMATIC, NORMAL INSPECTION, NORMOCEPHALIC - Eye Exam Eye Exam: EOMI, Normal appearance, PERRL Pupil Exam: NORMAL ACCOMODATION, PERRL - ENT Exam ENT Exam: Mucous Membranes Moist, Normal Exam - Neck Exam Neck Exam: Full ROM, Normal Inspection. absent: Lymphadenopathy - Respiratory Exam Respiratory Exam: Decreased Breath Sounds - Cardiovascular Exam Cardiovascular Exam: REGULAR RHYTHM, +S1, +S2 - GI/Abdominal Exam GI & Abdominal Exam: Soft, Diminished Bowel Sounds - Rectal Exam Rectal Exam: Deferred Assessment and Plan (1) Acute appendicitis with appendiceal abscess Status: Acute (2) Inguinal hernia, incarcerated Status: Acute - Assessment and Plan (Free Text) Plan: Continue with IV Rocephin and other antibiotic ID consult will call the doctor as needed follow-up with the surgical doctor and Dr. Milner but not seen surgical garment inspector not seen patients pain is decreasing patient looks better awaiting for the subacute rehab placement
[2017-02-11] MEDS: Enoxaparin 40 mg Syringe SC SCH (11:31)
[2017-02-12] MEDS: Vancomycin 1 gm/NS 200 ml 1 GM/200 ML BAG IVPB SCH ×2 (00:01→10:59)
[2017-02-12 08:03] LABS: BASO # 0.1 K/uL (0.0-0.2); EOS # 0.2 K/uL (0.0-0.7); EOS % 4.2 % (0.0-4.0); HEMATOCRIT 36.1 % (35.0-51.0); LYMPH # 1.7 K/uL (1.0-4.3); LYMPH % 29.3 % (20.0-40.0); MEAN CELL VOLUME 82.4 fL (80.0-94.0); MEAN CORPUSCULAR HEMOGLOBIN 27.7 pg (27.0-31.0); MEAN CORPUSCULAR HGB CONC 33.6 g/dL (33.0-37.0); MEAN PLATELET VOLUME 7.1 fL (7.2-11.7); MONO # 0.4 K/uL (0.0-0.8); MONO % 6.4 % (0.0-10.0); RED CELL DISTRIBUTION WIDTH 14.3 % (11.5-14.5); WHITE BLOOD COUNT 5.8 K/uL (4.8-10.8)
--- NOTE | 2017-02-12 10:20 | CP.PCM.PN ---
Subjective - Date & Time of Evaluation Date of Evaluation: 02/12/17 Time of Evaluation: 09:00 - Subjective Subjective: General Surgery- Dr. Dowd PT S&E at bedside this am. serous drainage at I&D site over night. No acute events. Patient is tolerating diet and having normal BM. Denies fever/chills. Wound re-packed and dressed at bedside, c/d/i. Objective - Vital Signs/Intake and Output Vital Signs (last 24 hours): Temp Pulse Resp BP Pulse Ox 98.4 F 78 20 98/60 L 99 02/12/17 07:34 02/12/17 07:34 02/12/17 07:34 02/12/17 07:34 02/12/17 07:34 Intake and Output: 02/12/17 02/12/17 06:59 18:59 Intake Total 200 Output Total 600 Balance -400 - Medications Medications: Current Medications Acetaminophen (Tylenol 325mg Tab) 975 mg PO Q6 PRN PRN Reason: Pain, moderate (4-7) Enoxaparin Sodium (Lovenox) 40 mg SC DAILY [facility] Last Admin: 02/11/17 11:31 Dose: 40 mg Famotidine (Pepcid) 20 mg PO BID [facility] Last Admin: 02/11/17 17:23 Dose: 20 mg Vancomycin/Sodium Chloride (Vancocin) 1 gm in 200 mls @ 133.333 mls/hr IVPB Q12H [facility] Stop: 02/14/17 12:01 Last Admin: 02/12/17 00:01 Dose: 133.333 mls/hr Ceftriaxone Sodium 1 gm/ (Sodium Chloride) 100 mls @ 100 mls/hr IVPB Q12H [facility] Last Admin: 02/11/17 21:07 Dose: 100 mls/hr Ketorolac Tromethamine (Toradol) 10 mg PO Q6 PRN PRN Reason: Pain, severe (8-10) Ondansetron HCl (Zofran Inj) 4 mg IVP Q6 PRN PRN Reason: Nausea/Vomiting Tamsulosin HCl (Flomax) 0.4 mg PO DAILY [facility] Last Admin: 02/11/17 11:30 Dose: 0.4 mg - Labs Labs: 02/12/17 07:52 02/10/17 07:08 PT 16.5 SECONDS (9.7-12.2) H 02/05/17 08:32 INR 1.4 02/05/17 08:32 APTT 28 SECONDS (21-34) 02/05/17 08:32 - Constitutional Appears: Non-toxic, No Acute Distress - ENT Exam ENT Exam: Mucous Membranes Moist - Respiratory Exam Respiratory Exam: NORMAL BREATHING PATTERN. absent: Accessory Muscle Use, Rhonchi, Wheezes - Cardiovascular Exam Cardiovascular Exam: +S1, +S2 - GI/Abdominal Exam GI & Abdominal Exam: Soft, Tenderness Additional comments: Tenderness around right groin. induration on medial side has decreased. evidence of healing inside otu - Neurological Exam Neurological Exam: Alert, Awake, Oriented x3 - Psychiatric Exam Psychiatric exam: Normal Affect - Skin Skin Exam: Normal Color Assessment and Plan - Assessment and Plan (Free Text) Assessment: 56M Incision and Drainage of Right groin POD3 Plan: -Regular diet - continue daily packing changes - OOB - Pt cleared for discharge from surgical standpoint on PO antibiotics Oscar Fields PGY1
[2017-02-12] MEDS: Enoxaparin 40 mg Syringe SC SCH (10:56)
--- NOTE | 2017-02-12 15:16 | CP.PCM.PN ---
Subjective - Date & Time of Evaluation Date of Evaluation: 02/12/17 Time of Evaluation: 07:40 - Subjective Subjective: clinically same Objective - Vital Signs/Intake and Output Vital Signs (last 24 hours): Temp Pulse Resp BP Pulse Ox 98.4 F 78 20 98/60 L 99 02/12/17 07:34 02/12/17 07:34 02/12/17 07:34 02/12/17 07:34 02/12/17 07:34 Intake and Output: 02/12/17 02/12/17 06:59 18:59 Intake Total 200 Output Total 600 Balance -400 - Medications Medications: Current Medications Acetaminophen (Tylenol 325mg Tab) 975 mg PO Q6 PRN PRN Reason: Pain, moderate (4-7) Enoxaparin Sodium (Lovenox) 40 mg SC DAILY [facility] Last Admin: 02/12/17 10:56 Dose: 40 mg Famotidine (Pepcid) 20 mg PO BID [facility] Last Admin: 02/12/17 10:56 Dose: 20 mg Vancomycin/Sodium Chloride (Vancocin) 1 gm in 200 mls @ 133.333 mls/hr IVPB Q12H [facility] Stop: 02/14/17 12:01 Last Admin: 02/12/17 10:59 Dose: 133.333 mls/hr Ceftriaxone Sodium 1 gm/ (Sodium Chloride) 100 mls @ 100 mls/hr IVPB Q12H [facility] Last Admin: 02/12/17 10:55 Dose: 100 mls/hr Ketorolac Tromethamine (Toradol) 10 mg PO Q6 PRN PRN Reason: Pain, severe (8-10) Ondansetron HCl (Zofran Inj) 4 mg IVP Q6 PRN PRN Reason: Nausea/Vomiting Tamsulosin HCl (Flomax) 0.4 mg PO DAILY [facility] Last Admin: 02/12/17 10:56 Dose: 0.4 mg - Labs Labs: 02/12/17 07:52 02/10/17 07:08 PT 16.5 SECONDS (9.7-12.2) H 02/05/17 08:32 INR 1.4 02/05/17 08:32 APTT 28 SECONDS (21-34) 02/05/17 08:32 - Constitutional Appears: Well - Head Exam Head Exam: ATRAUMATIC, NORMAL INSPECTION, NORMOCEPHALIC - Eye Exam Eye Exam: EOMI, Normal appearance, PERRL Pupil Exam: NORMAL ACCOMODATION, PERRL - ENT Exam ENT Exam: Mucous Membranes Moist, Normal Exam - Neck Exam Neck Exam: Full ROM, Normal Inspection. absent: Lymphadenopathy - Respiratory Exam Respiratory Exam: Decreased Breath Sounds - Cardiovascular Exam Cardiovascular Exam: REGULAR RHYTHM, +S1, +S2 - GI/Abdominal Exam GI & Abdominal Exam: Soft, Diminished Bowel Sounds - Rectal Exam Rectal Exam: Deferred Assessment and Plan (1) Acute appendicitis with appendiceal abscess Status: Acute (2) Inguinal hernia, incarcerated Status: Acute - Assessment and Plan (Free Text) Plan: Denies any pain, shortness of breath, abdominal pain Cleared for discharge IV Rocephin P.o. Flagyl for 3 weeks Daily dressing changes PICC care Repeat CAT scan after 3 weeks Return to ED if symptom worsens
[2017-02-12 16:29] VITALS: BP 106/68; PULSE 102; TEMP 98.7; O2SAT 96
--- NOTE | 2017-02-12 16:47 | CP.PCM.PN ---
Subjective - Date & Time of Evaluation Date of Evaluation: 02/12/17 Time of Evaluation: 16:46 - Subjective Subjective: 56 Y/O MALE SEEN AND EXAMINED TODAY BY DR Kai WRIGHT, PT DENIES ANY PAIN, SOB, ABD PAIN, N/V. Objective - Vital Signs/Intake and Output Vital Signs (last 24 hours): Temp Pulse Resp BP Pulse Ox 98.7 F 102 H 20 106/68 96 02/12/17 15:00 02/12/17 15:00 02/12/17 15:00 02/12/17 15:00 02/12/17 15:00 Intake and Output: 02/12/17 02/12/17 06:59 18:59 Intake Total 200 Output Total 600 Balance -400 - Medications Medications: Current Medications Acetaminophen (Tylenol 325mg Tab) 975 mg PO Q6 PRN PRN Reason: Pain, moderate (4-7) Enoxaparin Sodium (Lovenox) 40 mg SC DAILY [facility] Last Admin: 02/12/17 10:56 Dose: 40 mg Famotidine (Pepcid) 20 mg PO BID [facility] Last Admin: 02/12/17 10:56 Dose: 20 mg Vancomycin/Sodium Chloride (Vancocin) 1 gm in 200 mls @ 133.333 mls/hr IVPB Q12H [facility] Stop: 02/14/17 12:01 Last Admin: 02/12/17 10:59 Dose: 133.333 mls/hr Ceftriaxone Sodium 1 gm/ (Sodium Chloride) 100 mls @ 100 mls/hr IVPB Q12H [facility] Last Admin: 02/12/17 10:55 Dose: 100 mls/hr Ketorolac Tromethamine (Toradol) 10 mg PO Q6 PRN PRN Reason: Pain, severe (8-10) Ondansetron HCl (Zofran Inj) 4 mg IVP Q6 PRN PRN Reason: Nausea/Vomiting Tamsulosin HCl (Flomax) 0.4 mg PO DAILY [facility] Last Admin: 02/12/17 10:56 Dose: 0.4 mg - Labs Labs: 02/12/17 07:52 02/10/17 07:08 PT 16.5 SECONDS (9.7-12.2) H 02/05/17 08:32 INR 1.4 02/05/17 08:32 APTT 28 SECONDS (21-34) 02/05/17 08:32 Assessment and Plan - Assessment and Plan (Free Text) Plan: [age]Y/[age] MALE WITH PMHX APPENDICITIS ADMITTED FOR ACUTE APPENDICULAR ABSCESS, I &D DOEN BY SURGERY, RLQ DSG C/D/I PT CLEARED FOR D/C BY DR WRIGHT, DR GIBSON IV ROCEPHIN AND FLAGYL PO FOR [address] GIBSON DAILY DSG CHANGES REPEAT CAT SCAN AFTER 3 WEEKS CBC, CMP, EVERY THURSDAY PICC CARE PER FACILITY PROTOCOL
--- NOTE | 2017-02-13 19:40 | CARD ---
APPROVED REPORT EKG Measurement Heart [id number] <Conclusion> Normal sinus rhythm Normal ECG
--- NOTE | 2017-02-13 19:40 | CARD ---
APPROVED REPORT EKG Measurement Heart [id number] <Conclusion> Normal sinus rhythm Normal ECG
== END 2017-02-12 17:25 | DRG 357 ==
LOC: C.ER 13:11 → C.3T 20:09
PROVIDERS: ADMIT Specialist; ATTEND Specialist
PROC: 0J9C3ZZ Drainage of Pelvic Region Subcutaneous Tissue and Fascia, Percutaneous Approach (ICD-10-PCS; 2017-02-04)
PROC: 02HV33Z Insertion of Infusion Device into Superior Vena Cava, Percutaneous Approach (ICD-10-PCS; 2017-02-06)
PROC: 0HBHXZZ Excision of Right Upper Leg Skin, External Approach (ICD-10-PCS; principal; 2017-02-09 08:00)
DX: K35.2 Acute appendicitis with generalized peritonitis (principal); K40.30 Unilateral inguinal hernia, with obstruction, without gangrene, not specified as recurrent; I10 Essential (primary) hypertension; L02.214 Cutaneous abscess of groin; E78.00 Pure hypercholesterolemia, unspecified; N43.3 Hydrocele, unspecified; Z87.891 Personal history of nicotine dependence; E78.5 Hyperlipidemia, unspecified

== ENCOUNTER 2017-10-07 09:22 | Day surgery (SDC) | payer BC ==
[2017-10-05 09:49] VITALS: BMI 23.3
[2017-10-07] MEDS ORDERED: ceFAZolin 1 gm in NS 2 GM/200 ML BAG IVPB ONE (12:24)
[2017-10-07] MEDS ORDERED: Midazolam 2 MG/2 ML VIAL ONE (12:29)
[2017-10-07] MEDS ORDERED: Propofol 10 mg/ml Inj (20 ML) ONE (12:29)
[2017-10-07] MEDS: Lidocaine/Epinephrine 1% 1:100000 10 ML IJ ONE ×2 (12:43→12:50)
[2017-10-07] MEDS: Bupivacaine 0.25% Inj(30mL) ONE ×2 (12:43→12:50)
--- NOTE | 2017-10-07 13:30 | PCM.SURG1 ---
Surgeon's Initial Post Op Note - Surgeon's Notes Surgeon: Dr. Dowd Houseperson: Dr. Wilde, PGY-3 Type of Anesthesia: General LMA Anesthesia Administered By: Dr. Cha Pre-Operative Diagnosis: non-healing R groin wound Operative Findings: See operative report Post-Operative Diagnosis: Same Operation Performed: Debridement & Wide local excision of R groin wound Specimen/Specimens Removed: scar/skin Estimated Blood Loss: EBL {In ML}: 5 Blood Products Given: N/A Drains Used: No Drains Post-Op Condition: Good Date of Surgery/Procedure: 10/07/17 Time of Surgery/Procedure: 13:29
[2017-10-07] MEDS ORDERED: Oxycodone/Acetaminophen 5/325 mg Tab PO PRN (13:32)
[2017-10-07] MEDS ORDERED: HYDROmorphone 0.5 mg/0.5 ml ISec IVP PRN (13:34)
--- NOTE | 2017-10-08 01:32 | OP ---
PROCEDURE DATE: 10/07/2017 PREOPERATIVE DIAGNOSIS: Right groin wound. POSTOPERATIVE DIAGNOSIS: Right groin wound with granulation tissue. PROCEDURES: 1. Wide local excision of right groin wound with chronic granulation tissue. 2. Layered closure of wound, approximately 5 x 3 cm size. SURGEON: Nahun Dowd MD AGRICULTURAL APPRAISER: Eva Wilde, PGY-2 resident. TYPE OF ANESTHESIA: General LMA. ESTIMATED BLOOD LOSS: Around 10 mL. DRAINS: None. PATHOLOGY: The granulation tissue with thickened normal tissue was sent off the table for pathology. COMPLICATIONS: None. INTRAOPERATIVE FINDINGS: The patient had a granulation tissue with deep extension up to the underlying fascia and had a thickened skin surrounding to granulation tissue. DESCRIPTION OF PROCEDURE: On intraoperative step, this 56-year-old male who was diagnosed with chronic granulation tissue as well as wound of the right groin, and the patient was consented for the excision of the right groin wound and brought to the OR, placed upon the operating table. After induction of anesthesia, the right groin was prepped and draped in usual sterile fashion, and an elliptical incision was made surrounding the right wound and the granulation tissue in the apex, was carried down deep up to the underlying fascia and the skin, subcutaneous tissue as well as part of the fascia was completely excised, and it was sent off the table to Pathology, and the wound was irrigated and now the defect was closed with 0-Vicryl incomplete suture on the fascia, the multilayer closure of the subcutaneous tissue with 0-Vicryl and skin with 4-0 Monocryl and dry sterile dressing was applied. The patient tolerated the procedure well. Count of the instrument and gauze was correct. There was no apparent complication. The patient was reversed from anesthesia, sent to the postanesthesia recovery unit in stable condition. Nahun Dowd MD
[2017-10-08 11:05] VITALS: BP 112/62; RESP 16; TEMP 97.7; O2SAT 100
[2017-10-08 11:08] VITALS: PULSE 68
== END 2017-10-07 18:24 | disposition home or self-care (01) ==
LOC: C.SDS 09:22
PROVIDERS: ATTEND Surgery Surgical Critical Care
DX: S31.103A Unspecified open wound of abdominal wall, right lower quadrant without penetration into peritoneal cavity, initial encounter (principal); X58.XXXA Exposure to other specified factors, initial encounter; L92.8 Other granulomatous disorders of the skin and subcutaneous tissue
CPT/HCPCS: 12034; 88305; J0690; J2250; J2704; J3010